=== PATIENT | male | born 1945 | race Caucasian/White ===

== ENCOUNTER → 2017-03-02 | Outpatient (CLI) | payer OTHER ==
[2017-03-02 13:53] LABS: ADD MAN DIFF? NO
[2017-03-02 13:58] LABS: BASO % 1 % (0-3); EOS % 1 % (0-3); HEMATOCRIT 46.2 % (39.0-53.0); HEMOGLOBIN 15.5 g/dL (13.0-17.5); LYMPH # 1.2 x10^3/uL (1.0-4.8); LYMPH % 21 % (24-48); MEAN CORPUSCULAR HEMOGLOBIN 29 pg (25-35); MEAN CORPUSCULAR HGB CONC 34 g/dL (31-37); MEAN CORPUSCULAR VOLUME 86 fL (79-100); MONO % 3 % (0-9); NEUT % 75 % (31-73); PLATELET COUNT 273 x10^3/uL (140-400); RED BLOOD COUNT 5.35 x10^6/uL (4.30-5.70); RED CELL DISTRIBUTION WIDTH 14.6 % (11.5-14.5); WHITE BLOOD COUNT 5.7 x10^3/uL (4.0-11.0)
[2017-03-02 14:16] LABS: ALBUMIN 3.9 g/dL (3.4-5.0); ALBUMIN/GLOBULIN RATIO 1.4 (1.0-1.7); ALK PHOS 87 U/L (46-116); ALT (SGPT) 30 U/L (16-63); ANION GAP 13 (6-14); AST (SGOT) 20 U/L (15-37); BLOOD UREA NITROGEN 28 mg/dL (8-26); BUN/CREATININE RATIO 16 (6-20); CALCIUM 8.7 mg/dL (8.5-10.1); CARBON DIOXIDE 26 mmol/L (21-32); CHLORIDE 102 mmol/L (98-107); CHOLESTEROL 199 mg/dL (0-200); CREATININE 1.8 mg/dL (0.7-1.3); GFR 37.3; GLUCOSE 177 mg/dL (70-99); HDLC 46 mg/dL (40-60); NON-HDL CHOLESTEROL 153 mg/dL (0-129); POTASSIUM 4.5 mmol/L (3.5-5.1); SODIUM 141 mmol/L (136-145); TOTAL BILIRUBIN 0.6 mg/dL (0.2-1.0); TOTAL PROTEIN 6.7 g/dL (6.4-8.2); TRIGLYCERIDES 156 mg/dL (0-150)
[2017-03-02 14:17] LABS: CHOLESTEROL/HDL RATIO 4.3
[2017-03-02 15:01] LABS: PROSTATE SPECIFIC ANTIGEN 3.45 ng/mL (0.00-4.00)
== END | disposition home or self-care (01) ==
LOC: LAB 13:30
DX: Z12.5 Encounter for screening for malignant neoplasm of prostate (principal); I10 Essential (primary) hypertension; R79.89 Other specified abnormal findings of blood chemistry
CPT/HCPCS: 36415; 80053; 80061; 83036; 84443; 85025; G0103

== ENCOUNTER → 2017-03-08 | Outpatient (CLI) | payer OTHER ==
[~2017-03-08] MED LIST: IOHEXOL 300 MG/ML 100ML VIAL. IV
== END | disposition home or self-care (01) ==
LOC: KCIC CT 09:08
DX: R91.1 Solitary pulmonary nodule (principal); E04.1 Nontoxic single thyroid nodule; M47.899 Other spondylosis, site unspecified
CPT/HCPCS: 71250

== ENCOUNTER → 2017-12-06 | Outpatient (CLI) | payer OTHER ==
[2015-06-19 12:50] VITALS: BP 108/47
[~2017-12-06] MED LIST changes: +AMLO10TA6 PO; +ASPI-630 PO; +HYDR50TA6 PO; -IOHEXOL 300 MG/ML 100ML VIAL. IV; +LISI-130 PO; +OMEG1CAP38 PO; +OXYMETAZOLINE 0.05% NASAL SPRAY 30ML BOTTLE. NS ONE; +TADA5TAB PO
--- NOTE | 2017-12-13 09:31 | SLEEP ---
DATE OF STUDY: 12/06/2017 PRIMARY CARE PHYSICIAN: Davon Seth MD. REFERRING PHYSICIAN: Lee Macdonald MD. The patient is 72 years old who weighs 240 pounds with a BMI of 34. The patient's [place] score was 3. The patient underwent a diagnostic study at [facility]. During the night study, the patient spent 430 minutes in bed and slept for 302 minutes with a sleep efficiency of 70%. Sleep latency was 33 minutes with a REM latency of 217 minutes. Overall, sleep architecture showed increased stage 1 sleep, normal stage 2 sleep, normal slow wave and slightly reduced REM sleep, which was 14% of the total sleep time. During the night study, the patient had 3 obstructive apneas, 67 mixed apneas, 8 central apneas and 66 hypopneas. The patient's apnea-hypopnea index was 29 per hour, supine index 30 per hour, and REM index of 50 per hour. EKG monitoring revealed normal sinus rhythm. Average heart rate was 65 beats per minute. No arrhythmias were observed. Nocturnal oximetry study revealed a mean oxygen saturation of 96% with the lowest of 84%. 18% of time oxygen saturation remained between 80% and 89%. PLMS were seen at index of 8 per hour and none caused EEG arousals. CPAP was not initiated as there was not enough time to initiate the CPAP after the patient met the criteria. IMPRESSION: 1. Moderate to severe sleep apnea-hypopnea syndrome. Total apnea-hypopnea index 29 per hour, supine apnea-hypopnea index 30 per hour and a REM apnea-hypopnea index of 50 per hour. 2. Nocturnal hypoxia secondary to obstructive sleep apnea. 3. Mild periodic limb movements during sleep without any significant EEG arousals. This does not need to be treated. RECOMMENDATIONS: 1. The patient should return for a CPAP titration study. 2. Once optimum CPAP pressure is achieved, then follow up in 4-6 weeks to assess compliance with CPAP and to document clinical improvement. 3. Weight loss is strongly advised. 4. Avoid [employer]ICATION [employer] depressants. 5. Caution regarding driving until symptoms of sleep apnea resolve with the use of CPAP. ERIK MOSCOSO MD DR: KADIE/chelo JOB#: [id number] / [id number] LEE Glaser MD
== END | disposition home or self-care (01) ==
LOC: SLPLAB 18:40
PROVIDERS: ATTEND Internal Medicine Pulmonary Disease
DX: G47.33 Obstructive sleep apnea (adult) (pediatric) (principal); G47.34 Idiopathic sleep related nonobstructive alveolar hypoventilation; G47.61 Periodic limb movement disorder
CPT/HCPCS: 95810

== ENCOUNTER → 2018-01-29 | Outpatient (CLI) | payer OTHER ==
[2015-06-19 12:50] VITALS: BP 108/47
[~2018-01-29] MED LIST changes: +IOHEXOL 300 MG/ML 100ML VIAL. IV ONE; -OXYMETAZOLINE 0.05% NASAL SPRAY 30ML BOTTLE. NS ONE
--- NOTE | 2018-01-29 12:46 | KCIC ---
EXAM: Chest CT with intravenous contrast. HISTORY: Pulmonary nodule follow-up. TECHNIQUE: Computed tomographic images of the chest were obtained following the administration of 75 cc Omnipaque 300 intravenous contrast. Multiplanar reformatting was performed. *One or more of the following individualized dose reduction techniques were utilized for this examination: 1. Automated exposure control. 2. Adjustment of the mA and/or kV according to patient size. 3. Use of iterative reconstruction technique. COMPARISON: 03/08/2017. FINDINGS: The heart is normal in size. There is evidence of median sternotomy and coronary artery bypass grafting. The aorta is normal in caliber. There is aortic and [place] coronary artery atherosclerosis. No pathologically enlarged mediastinal or hilar lymph node is seen. There are few calcified mediastinal granulomas, predominantly within the subcarinal distribution. There is no pneumothorax or pleural effusion. There is no infiltrate. There is lingular and bilateral lower lobe atelectasis. There is stable 11 mm pleural-based nodular opacity within the anterior medial right upper lobe likely due to pleural parenchymal scarring. There is a stable 8 mm nodule within the posterior right upper lobe. No new nodule is seen. There is no suspicious osseous lesion. There is hepatic steatosis. There is degenerative change throughout the visualized spine. There is stable sclerosis within the posterior inferior aspect of T12, surrounding a large endplate Schmorl's nodes. IMPRESSION: 1. Stable 8 mm right upper lobe pulmonary nodule. Continued follow-up can be performed according to Fleischner Society criteria to confirm a two-year course of stability. 2. Stable 11 mm pleural-based nodular opacity within the anterior medial right upper lobe, likely due to pleural parenchymal scarring. 3. No acute thoracic finding. Fleischner Society recommendations (Radiology 2005; 237; 395-400): In a low risk patient: <4mm - No follow up required. >4-6mm- 12 month follow up, if unchanged, no further follow up. >6-8mm- 6-12 month follow up, then at 18-24 months if no change. >8mm- 3, 9, 24 month follow up or consideration of PET/CT. In a high risk patient: <4mm - 12 month follow up, if unchanged then no further follow up. >4-6mm- 6-12 month follow up, then at 18-24 months if no change. >6-8mm- 3-6 month follow up, then at 9-12 months and 24 months if no change >8mm- Same as for low risk patient. Electronically signed by: Enid Cruz MD (01/29/2018 12:43 PM) [facility]
== END | disposition home or self-care (01) ==
LOC: KCIC CT 10:20
PROVIDERS: ATTEND Family Medicine
DX: I25.10 Atherosclerotic heart disease of native coronary artery without angina pectoris (principal); J98.11 Atelectasis; K76.0 Fatty (change of) liver, not elsewhere classified; J98.59 Other diseases of mediastinum, not elsewhere classified; R91.8 Other nonspecific abnormal finding of lung field; R91.1 Solitary pulmonary nodule
CPT/HCPCS: 71260; 82565; Q9967

== ENCOUNTER → 2018-03-30 | Outpatient (CLI) | payer OTHER ==
[2015-06-19 12:50] VITALS: BP 108/47
[~2018-03-30] MED LIST changes: -IOHEXOL 300 MG/ML 100ML VIAL. IV ONE
[2018-03-30 12:16] LABS: BASO # 0.1 x10^3/uL (0.0-0.2); BASO % 1 % (0-3); EOS # 0.3 x10^3/uL (0.0-0.7); EOS % 6 % (0-3); HEMATOCRIT 47.9 % (39.0-53.0); LYMPH # 2.1 x10^3/uL (1.0-4.8); LYMPH % 35 % (24-48); MEAN CORPUSCULAR HEMOGLOBIN 29 pg (25-35); MEAN CORPUSCULAR HGB CONC 33 g/dL (31-37); MEAN CORPUSCULAR VOLUME 87 fL (79-100); MONO # 0.5 x10^3/uL (0.0-1.1); MONO % 9 % (0-9); NEUT % 50 % (31-73); PLATELET COUNT 301 x10^3/uL (140-400); RED BLOOD COUNT 5.53 x10^6/uL (4.30-5.70); RED CELL DISTRIBUTION WIDTH 14.6 % (11.5-14.5); WHITE BLOOD COUNT 6.1 x10^3/uL (4.0-11.0)
[2018-03-30 12:57] LABS: ALBUMIN 3.9 g/dL (3.4-5.0); ALBUMIN/GLOBULIN RATIO 1.1 (1.0-1.7); CALCIUM 9.5 mg/dL (8.5-10.1); CREATININE 1.5 mg/dL (0.7-1.3); GFR 45.9; POTASSIUM 4.2 mmol/L (3.5-5.1); TOTAL BILIRUBIN 0.8 mg/dL (0.2-1.0); TOTAL PROTEIN 7.6 g/dL (6.4-8.2)
[2018-03-30 12:58] LABS: CHOLESTEROL/HDL RATIO 4.3
[2018-03-30 19:16] LABS: HEMOGLOBIN A1C 5.6 % (4.8-5.6)
== END | disposition home or self-care (01) ==
LOC: LAB 11:55
PROVIDERS: ATTEND Family Medicine
DX: E78.9 Disorder of lipoprotein metabolism, unspecified (principal)
CPT/HCPCS: 36415; 80053; 80061; 83036; 84443; 85025

== ENCOUNTER → 2018-04-10 | Outpatient (CLI) | payer OTHER ==
[2015-06-19 12:50] VITALS: BP 108/47
[~2018-04-10] MED LIST changes: -AMLO10TA6 PO; +AMLO10TA8 PO; +BUPIVACAINE MPF 0.5% 10 ML VIAL for KCIC. IM ONE; +IOHEXOL 300 MG/ML 50 ML VIAL. INT ART ONE; +LIDOCAINE 1% Multi-Dose 20 ML VIAL. ID ONE; +methylPREDNISolone ACETATE 40 MG/ML VIAL. INT ART ONE
--- NOTE | 2018-04-10 17:00 | KCIC ---
PROCEDURE Therapeutic right hip injection using fluoroscopic guidance. HISTORY Hip pain. TECHNIQUE The procedure was explained to the patient as were potential risks, including infection, bleeding or allergic reaction. All questions were answered. Informed written and verbal consent was obtained. The hip was prepped and draped in the usual sterile manner. Following administration of local anesthetic, a 22-gauge spinal needle was advanced into the hip joint without difficulty, with care taken to avoid the vascular structures. Stylet was removed and following negative aspiration, a mixture of 4 cc Omnipaque-300, 2 cc (80 mg) Depo-Medrol, 4 cc bupivacaine and 4 cc 1% lidocaine were injected without difficulty. Fluoroscopy demonstrates uniform and satisfactory distribution of the injection through the hip. The needle was removed. There was good hemostasis at the injection site. The patient left in stable condition without immediate complication. A single spot image was obtained. FLUOROSCOPY TIME: 31 seconds Electronically signed by: Doug Edwards MD (04/10/2018 4:55 PM) [facility]
== END | disposition home or self-care (01) ==
LOC: KCIC 13:42
PROVIDERS: ATTEND Family Medicine
DX: M25.551 Pain in right hip (principal); G89.29 Other chronic pain; M54.31 Sciatica, right side; J44.9 Chronic obstructive pulmonary disease, unspecified; F52.32 Male orgasmic disorder; N18.3 Chronic kidney disease, stage 3 (moderate); I12.9 Hypertensive chronic kidney disease with stage 1 through stage 4 chronic kidney disease, or unspecified chronic kidney disease; I25.118 Atherosclerotic heart disease of native coronary artery with other forms of angina pectoris; E66.01 Morbid (severe) obesity due to excess calories; E78.9 Disorder of lipoprotein metabolism, unspecified; Z87.891 Personal history of nicotine dependence; Z88.0 Allergy status to penicillin; Z88.2 Allergy status to sulfonamides; Z88.8 Allergy status to other drugs, medicaments and biological substances; Z91.048 Other nonmedicinal substance allergy status; Z79.899 Other long term (current) drug therapy; Z82.49 Family history of ischemic heart disease and other diseases of the circulatory system; Z98.890 Other specified postprocedural states; Z68.36 Body mass index [BMI] 36.0-36.9, adult
CPT/HCPCS: 20610; 77002; J1030; Q9967

== ENCOUNTER → 2018-04-11 | Outpatient (CLI) | payer OTHER ==
[2015-06-19 12:50] VITALS: BP 108/47
[~2018-04-11] MED LIST changes: -BUPIVACAINE MPF 0.5% 10 ML VIAL for KCIC. IM ONE; -IOHEXOL 300 MG/ML 50 ML VIAL. INT ART ONE; -LIDOCAINE 1% Multi-Dose 20 ML VIAL. ID ONE; +PERFLUTREN PROTEIN-A MICROSPHR 0.22 MG/ML 3 ML VIAL. IV ONE; -methylPREDNISolone ACETATE 40 MG/ML VIAL. INT ART ONE
[2018-04-11] MEDS: PERFLUTREN PROTEIN-A MICROSPHR 0.22 MG/ML 3 ML VIAL. IV PRN ×2 (14:01→14:02)
--- NOTE | 2018-04-11 15:02 | CARD ---
MR#: [id number] Date of Study: 04/11/2018 Ordering Physician: NICHO VIZCAINO, Referring Physician: NICHO VIZCAINO Tech: Brenda Stout RDCS APPROVED REPORT EXAM: Two-dimensional and M-mode echocardiogram with Doppler and color Doppler. Other Information Quality : Technically Limited Technically limited study due to body habitus. INDICATION Cardiac Disease: CAD Echo Enhancing Agent Indication: Endocardial border delineation Agent/Amount Used: Optison 2mL 2D DIMENSIONS RVDd2.7 (2.9-3.5cm)Left Atrium(2D)3.8 (1.6-4.0cm) IVSd1.2 (0.7-1.1cm)Aortic Root(2D)3.2 (2.0-3.7cm) LVDd5.1 (3.9-5.9cm)LVOT Diameter2.0 (1.8-2.4cm) PWd1.2 (0.7-1.1cm)LVDs3.1 (2.5-4.0cm) FS (%) 30.0 %SV86.1 ml LVEF(%)60.0 (>50%) Aortic Valve AoV Peak Wilmer.132.5cm/sAoV VTI26.6cm AO Peak GR.7.0mmHgLVOT Peak Wilmer.133.2cm/s AO Mean GR.4mmHgAVA (VMAX)3.09cm2 ROBERTO (VTI)3.10cm2 Mitral Valve MV E Hssgntwa139.8cm/sMV DECEL OPTZ032aj MV A Izgmezbs61.1cm/sE/A Ratio1.0 Tricuspid Valve TR P. Uyecdshr022yg/sRAP OOMBWXPE8pdKp TR Peak Gr.90dgTcKUAT90xjBj Pulmonary Vein S1 Xzbcxrqw27.3cm/sD2 Fxcfjwgw89.7cm/s LEFT VENTRICLE The left ventricle is normal size. There is mild concentric left ventricular hypertrophy. The left ve ntricular systolic function is normal and the ejection fraction is within normal range. The Ejection Fraction is 55-60%. There is normal LV segmental wall motion. Transmitral Doppler flow pattern is Gra de II-pseudonormal filling dynamics. RIGHT VENTRICLE The right ventricle is normal size. The right ventricular systolic function is normal. ATRIA The left atrium size is normal. The right atrium size is normal. The interatrial septum is intact wit h no evidence for an atrial septal defect or patent foramen ovale as noted on 2-D or Doppler imaging. AORTIC VALVE The aortic valve is calcified and appears to open well. Doppler and Color Flow revealed no significan t aortic regurgitation. There is no significant aortic valvular stenosis. MITRAL VALVE The mitral valve is calcified but opens well. There is no evidence of mitral valve prolapse. There is no mitral valve stenosis. Doppler and Color Flow revealed trace mitral valve regurgitation. TRICUSPID VALVE The tricuspid valve is normal in structure and function. Doppler and Color Flow revealed trace tricus pid regurgitation. The PA pressure was estimated at 27 mmHg. There is no tricuspid valve stenosis. PULMONIC VALVE The pulmonic valve is not well visualized. Doppler and Color Flow revealed no pulmonic valvular regur gitation. There is no pulmonic valvular stenosis. GREAT VESSELS The aortic root is normal in size. The ascending aorta is normal in size. The IVC was not visualized. PERICARDIAL EFFUSION There is no evidence of significant pericardial effusion. Critical Notification Critical Value: No <Conclusion> The left ventricle is normal size. The left ventricular systolic function is normal and the ejection fraction is within normal range. The Ejection Fraction is 55-60%. There is mild concentric left ventricular hypertrophy. There is no significant aortic valvular stenosis. Doppler and Color Flow revealed no significant aortic regurgitation. Doppler and Color Flow revealed trace mitral valve regurgitation. Doppler and Color Flow revealed trace tricuspid regurgitation. The PA pressure was estimated at 27 mmHg. Signed by : Ry Butler MD Electronically Approved : 04/11/2018 15:00:13
== END | disposition home or self-care (01) ==
LOC: ECHO 13:12
PROVIDERS: ATTEND Internal Medicine Cardiovascular Disease
DX: I51.7 Cardiomegaly (principal); I25.810 Atherosclerosis of coronary artery bypass graft(s) without angina pectoris
CPT/HCPCS: C8929; Q9956

== ENCOUNTER → 2018-05-03 | Outpatient (CLI) | payer OTHER ==
[2015-06-19 12:50] VITALS: BP 108/47
[~2018-05-03] MED LIST changes: +NAPR-695 PO; -PERFLUTREN PROTEIN-A MICROSPHR 0.22 MG/ML 3 ML VIAL. IV ONE; +SILD20TA2 PO; +TIZA4TAB PO; +UBID30CA9 PO
--- NOTE | 2018-05-03 14:35 | KCIC ---
MRI Lumbar Spine without contrast History: Degenerative disc disease, low back pain, hip pain, pain into both hips, worsening right hip pain Technique: Multiplanar, multi sequential noncontrast MR imaging was performed of the lumbar spine. Comparison: None Findings: Lumbar vertebral body stature is overall maintained other than multilevel Schmorl's nodes. AP alignment is within normal limits. Conus terminates at the inferior aspect L2. There is multilevel advanced degenerative disc disease greatest L5-S1, L4-5, L2-3, to lesser degree at other lumbar levels and also of visualized inferior thoracic levels. There is focus of marrow edema of the inferior T12 vertebral body, hypointense on T1 sequence and hyperintense on STIR and T2 sequence although there may be some associated trabecular thickening, measures about 1.7 cm greatest dimension. T12-L1: There is negligible disc osteophyte complex and bulge. There is mild buckling of the ligamentum flavum. Neural foramina and spinal canal are adequate. L1-L2: There is mild facet degenerative change and buckling of the ligamentum flavum. There is minimal disc osteophyte complex and bulge. Neural foramina and spinal canal are adequate. L2-L3: There is minimal disc osteophyte complex, superimposed shallow protrusion eccentric to left lateral recess. There is mild prominence of posterior epidural fat. There is mild to moderate facet degenerative change and buckling of the ligamentum flavum. There is mild narrowing of the far left lateral recess. There is mild narrowing of the left neural foramen, right neural foramen adequate. L3-L4: There is minimal disc osteophyte complex and bulge. There is mild prominence of posterior epidural fat, buckling of the ligamentum flavum, facet hypertrophic change. Spinal canal is adequate. There is mild neural foramina compromise greater on the left. L4-L5: There is minimal buckling of the ligamentum flavum and facet hypertrophic change. There is mild prominence of posterior epidural fat. There is minimal disc osteophyte complex and shallow protrusion, spinal canal overall adequate. There is grto-ht-uovzlyty left greater than right neural foramina compromise. L5-S1: There is minimal disc osteophyte complex without impingement descending S1 nerve roots. There is prominence of epidural fat in the lateral recesses bilaterally. Small linear focus of signal change of the more posterior central aspect of the thecal sac may be a vessel. There is mild bilateral facet hypertrophic change. There is pbll-kc-yxfxbhim bilateral neural foramina compromise somewhat greater on the right. Impression: 1. There is multilevel advanced degenerative disc disease, L3-4 and L1-2 least affected. There is multilevel mild spondylosis. There is mild narrowing of the far left lateral recess L2-3, no significant lumbar spinal stenosis. There is yhwp-bp-jtynxymr neural foramina compromise bilaterally at L4-5 and L5-S1, minimally more superiorly. 2. There is a focus of nonspecific marrow edema of the inferior T12 vertebral body extending to the inferior endplate. This may be related to sequela of edema associated with Schmorl's node and/or atypical hemangioma, considered more likely than other more aggressive marrow replacing lesion (metastasis) especially if no history or suspicion for malignancy. If clinically needed, bone scan could be performed to assess for abnormal radiotracer activity and to assess for other lesions, alternatively follow-up to assess stability such as in 4 months possibly beneficial. Electronically signed by: Sampson Barron MD (05/03/2018 2:32 PM) [facility]
== END | disposition home or self-care (01) ==
LOC: KCIC MRI 13:25
PROVIDERS: ATTEND Family Medicine
DX: M51.36 Other intervertebral disc degeneration, lumbar region (principal); M47.896 Other spondylosis, lumbar region; M48.061 Spinal stenosis, lumbar region without neurogenic claudication; R60.0 Localized edema
CPT/HCPCS: 72148

== ENCOUNTER → 2018-05-15 | Outpatient (CLI) | payer OTHER ==
[2015-06-19 12:50] VITALS: BP 108/47
[~2018-05-15] MED LIST changes: +IOHEXOL 180 MG/ML 10 ML VIAL. ONE; +methylPREDNISolone ACETATE 40 MG/ML VIAL. ONE; +methylPREDNISolone ACETATE 80 MG/ML VIAL. ONE
--- NOTE | 2018-05-16 01:28 | PAIN ---
DATE OF SERVICE: 05/15/2018 INITIAL CONSULTATION FOR PAIN CLINIC CHIEF COMPLAINT: Low back and right lower extremity pain. HISTORY OF PRESENT ILLNESS: This is a 73-year-old male who presents with history of pain in the low back, right lower extremity for about 3 months. The patient reports it gradually increased, not a result of any specific injury or action he is aware of. It has been getting worse over time with radiation to the right hip, right leg, anterior thigh, medial thigh, medial lower leg and into the posterior gluteus as well as across the low back. The patient did have 2 injections in his right hip joint, which helped the pain by about 20%. The patient reports that still, pain is radiating to the lower extremity, though fairly significantly. The patient reports it is constant, becoming more sharp, stabbing, throbbing, radiating, aching, cramping, becoming more constant and more painful with walking, change in positions, standing from sitting position. The patient reports it is better with lying down. It does not awaken him from sleep at night. It does not affect his bowel or bladder control, but does affect his ability to walk fairly significantly with some significant fatigue in the right lower extremity, but not the left. The patient has had physical therapy in the past, doing some stretching and strengthening exercises on his own and has had some recent hip joint injections with Radiology guidance, but again only moderate decrease in pain. The patient reports he has been taking naproxen, which helps sometimes, but not often and not to a significant extent as well, about 10%. The patient rates his disability rate from 0-10, 10 being the worst, as a 2 with family home responsibilities, social activity, occupation and self-care, 9 with recreation activities, 0 with sexual behavior, 4 with life support activities. The patient did have MRI scan of the lumbar spine showing multilevel advanced degenerative disk disease at L3-L4. L1-L2, least affected with multilevel mild spondylosis with mild narrowing of the far lateral recesses. L2-L3, no significant lumbar spinal stenosis, mild to moderate neural foraminal compromise bilaterally at L4-L5 and L5-S1 minimally more superiorly. PAST MEDICAL HISTORY: Significant for shortness of breath, hypertension, irregular heart rate, sleep apnea, quit smoking in , history of dizziness, arthritis. PREVIOUS SURGERIES: Include coronary artery bypass graft in 2008 and tonsillectomy as a child. CURRENT MEDICATIONS: Include daily baby aspirin, omega fatty acids, Cialis, hydrochlorothiazide, lisinopril, amlodipine, sildenafil, Coenzyme Q10, naproxen and tizanidine. ALLERGIES: THE PATIENT IS ALLERGIC TO SULFA, PENICILLIN, SURGICAL TAPE. FAMILY HISTORY: Significant for no major medical problems or conditions he is aware of. SOCIAL HISTORY: The patient does not drink alcohol, does not smoke, quit many years ago. Does not use any illegal, illicit or recreational drugs. He is , lives with his spouse and lives locally in [place], [place]. Reports he is currently retired. REVIEW OF SYSTEMS: The patient's review of systems is positive for those items mentioned in the history of present illness. All systems reviewed and otherwise negative. It is complete, full and well documented on the patient's chart. PHYSICAL EXAMINATION: VITAL SIGNS: The patient's blood pressure is 174/98, pulse is 99, respirations are 16, temperature is 98.2 degrees Fahrenheit. Height is 5 feet 8 inches, weight is 259 pounds. GENERAL: The patient is awake, alert, oriented, appropriate, very pleasant demeanor. HEENT: Head shows normocephalic, atraumatic. Extraocular muscles are intact and symmetrical. Oral cavity: Mucous membranes moist and pink. The patient is wearing eyeglasses. NECK: Shows anterior throat supple without palpable lymphadenopathy noted. Swallow reflex is symmetrical. CHEST: Shows normal on inspection. Breath sounds clear to auscultation bilaterally. HEART: Shows S1, S2 clear. No murmurs auscultated. ABDOMEN: Obese, soft, nontender, nondistended. No palpable organomegaly is noted. No rebound or guarding demonstrated. BACK: The patient's back shows spine grossly in the midline. Slight exaggeration of thoracic kyphosis, some minor flattening of lumbar lordotic curvature. Lumbar paraspinous muscle shows symmetrical on inspection, on palpation shows some moderate tenderness diffusely throughout the upper, middle and lower distribution of paraspinous muscles, but again diffusely without radiation. The patient has good rotational motion of lumbar spine, both laterally greater than 10 degrees right and left as well as extension greater than 10 degrees, forward flexion 45 degrees without significant pain reported. EXTREMITIES: The patient's lower extremities show deep tendon reflexes 1+ in the patellar and tendo calcaneus tendons are equal. Motor exam is approximately 4 on a scale of 5 on the right, 5/5 on the left with dorsiflexion, extension, quadriceps and hamstring flexion. Peripheral pulses are 1+ posterior tibial. No peripheral edema is noted bilaterally. The patient's straight leg raise is noted to be mildly positive on the right, but not to about 45 degrees leg raise and is decreased with knee flexion. Left side is negative. Gaenslen's and Mario's maneuvers, she has a very mild tenderness with Mario's maneuver on the right, but not on the left. Gaenslen's maneuver negative bilaterally. The patient is able to stand, stand on her toes without difficulty or loss of balance, walks with a normal appearing gait for short distances in the office, not using assistive devices to ambulate. SKIN: Shows warm and dry, good turgor. No edema. No sores, rashes or bruising. IMPRESSION: 1. This is a 73-year-old male with approximately 3-month history of increasing pain in the low back, right lower extremity, status post hip joint injections with only minimal decrease in pain with radicular component of pain in the lower extremity as well and L4-L5 dermatomal distribution. 2. MRI scan of lumbar spine as noted. 3. Hypertension. 4. Arthritis. 5. Coronary artery disease. 6. Obesity. PLAN: Options were discussed with the patient including conservative medical management, physical therapy, interventional techniques. He would like to pursue with interventional techniques. We discussed lumbar epidural steroid injection using descriptions as well as anatomical models to describe the procedure. Risks were then discussed including, but not limited to, bleeding, infection, possibility of epidural hematoma and subsequent neurological compromise, dural puncture, headaches, spinal cord and/or nerve damage, side effects of steroid medication and poor results regarding pain control. The patient understands and wished to proceed. The patient to return to clinic in approximately 2 weeks for followup, was counseled as to return appointment, activity level and side effects to be aware of. DIAGNOSIS: Lumbar radiculopathy with lumbar degenerative disk disease. PROCEDURE: Lumbar epidural steroid injection, translaminar approach L4-L5 level using C-arm fluoroscopic guidance under sterile prep and drape using local anesthetic. MEDICATION INJECTED: A total of 120 mg Depo-Medrol plus 10 mL of preservative-free normal saline and 2 mL of Isovue for contrast. CONDITION AT DISCHARGE: Stable. The patient tolerated the procedure well, had no complications. OLINDA MICHAELS MD DR: LATRELL/chelo JOB#: [id number] / [id number] LAWRENCE Murphy MD
== END | disposition home or self-care (01) ==
LOC: PNCL 11:16
PROVIDERS: ATTEND Anesthesiology
DX: M51.16 Intervertebral disc disorders with radiculopathy, lumbar region (principal); I10 Essential (primary) hypertension; M19.90 Unspecified osteoarthritis, unspecified site; I25.10 Atherosclerotic heart disease of native coronary artery without angina pectoris; E66.9 Obesity, unspecified; Z87.891 Personal history of nicotine dependence; G47.30 Sleep apnea, unspecified; Z95.1 Presence of aortocoronary bypass graft; Z98.890 Other specified postprocedural states; Z79.82 Long term (current) use of aspirin; Z79.899 Other long term (current) drug therapy; Z88.0 Allergy status to penicillin; Z91.048 Other nonmedicinal substance allergy status; Z88.8 Allergy status to other drugs, medicaments and biological substances
CPT/HCPCS: 62323; J1030; J1040; Q9965

== ENCOUNTER → 2018-05-30 | Outpatient (CLI) | payer OTHER ==
[2015-06-19 12:50] VITALS: BP 108/47
--- NOTE | 2018-05-31 00:14 | PAIN ---
DATE OF SERVICE: 05/30/2018 PROGRESS NOTE FOR PAIN CLINIC DIAGNOSES: Lumbar radiculopathy with lumbar degenerative disk disease. HISTORY OF PRESENT ILLNESS: The patient is a 73-year-old male who returns for followup status post lumbar epidural steroid injection x 1. The patient reports pain is about the same as it was after the first injection, still in the low back and in the right lower extremity. The patient reports no significant improvement. The patient reports his pain as 8-9 on a scale of 10 at its worst, 4 on average and 1 at its least and is a 4 today. The patient reports it is aching, sharp, dull, stabbing and constant in the low back, right leg, posterior gluteus, posterior thigh, lateral thigh, anterior thigh, medial thigh and into the groin inferiorly in the upper medial right thigh. The patient reports no new motor or sensory deficits, no new bowel or bladder incontinence, still difficulty with walking, standing, changing positions, especially getting up from a seated position causes significant pain and stabbing sensation as well in the low back and right leg. PHYSICAL EXAMINATION: VITAL SIGNS: The patient's blood pressure 142/71, pulse 72, respirations 16, temperature is 97.9 degrees Fahrenheit, weight is 250 pounds. GENERAL: The patient is awake, alert, oriented, appropriate, very pleasant demeanor. HEENT: Head shows normocephalic, atraumatic. Extraocular movements intact and symmetrical. Oral cavity: Mucous membranes are moist and pink. Dentition is intact. NECK: Shows anterior throat supple without palpable lymphadenopathy noted. Swallow reflex symmetrical. CHEST: Shows normal on inspection. Breath sounds clear to auscultation bilaterally. HEART: Shows S1, S2 clear. No murmurs auscultated. ABDOMEN: Soft, nontender, nondistended. No palpable organomegaly is noted. No rebound or guarding demonstrated. BACK: Shows spine grossly in the midline. Normal appearing thoracic kyphosis and some slight flattening of lumbar lordotic curvature. Lumbar paraspinous muscle shows symmetrical on inspection with palpation shows some moderate tenderness diffusely without radiation. EXTREMITIES: The patient's lower extremities show deep tendon reflexes at 1+ in the patellar and tendo-calcaneus tendons are equal. Motor exam is approximately 4 on a scale of 5 on the right with dorsiflexion and extension, 5/5 on the left. Peripheral pulses are 1+ in posterior tibial. No peripheral edema is noted bilaterally. Options were discussed with the patient. The patient's old chart was reviewed as well as his current medication regimen updated. Current review of systems updated today as well. We will proceed with a second in the series of lumbar epidural steroid injection under fluoroscopic guidance. Risks were again discussed including, but not limited to bleeding, infection, possibility of epidural hematoma and subsequent neurological compromise, dural puncture, headaches, spinal cord and/or nerve damage, side effects of steroid medication and poor results regarding pain control. The patient understands and wished to proceed. The patient is to return to the clinic in approximately 2 weeks for followup, was counseled on return appointment, activity level and side effects to be aware of. DIAGNOSIS: Lumbar radiculopathy with lumbar degenerative disk disease. PROCEDURE: Lumbar epidural steroid injection with translaminar approach at L5-S1 level using C-arm fluoroscopic guidance under sterile prep and drape using local anesthetic. MEDICATION INJECTED: A total of 120 mg of Depo-Medrol plus 10 mL of preservative-free normal saline and 2 mL of Isovue for contrast. CONDITION AT DISCHARGE: Stable. The patient tolerated the procedure well, had no complications. OLINDA MICHAELS MD DR: LATRELL/chelo JOB#: [id number] / [id number]
== END | disposition home or self-care (01) ==
LOC: PNCL 11:04
PROVIDERS: ATTEND Anesthesiology
DX: M51.16 Intervertebral disc disorders with radiculopathy, lumbar region (principal); Z88.0 Allergy status to penicillin; Z88.2 Allergy status to sulfonamides; Z88.8 Allergy status to other drugs, medicaments and biological substances
CPT/HCPCS: 62323; J1030; J1040; Q9965

== ENCOUNTER → 2018-06-13 | Outpatient (CLI) | payer OTHER, MEDICARE ==
[2015-06-19 12:50] VITALS: BP 108/47
--- NOTE | 2018-06-14 03:03 | PAIN ---
DATE OF SERVICE: 06/13/2018 DIAGNOSES: Lumbar radiculopathy with lumbar degenerative disk disease. HISTORY OF PRESENT ILLNESS: The patient is a 73-old-male who presents for followup status post lumbar epidural steroid injection x 2. The patient reports the pain is reduced, but only for about 2-3 days following the injection each time, still some significant pain in the right leg, in the groin and actually into the inferior gluteus on the right side, radiating into the medial upper thigh and into the groin itself on the right side. The patient reports it is aching, sharp, tight, shooting, stabbing, exacerbated with movement of the leg, especially with adduction with the right leg to the midline. The patient reports the pain is 9 on a scale of 10 at its worst, 6 on average, 3 at its least and is 3 today. It is worse with walking, standing, changing positions; better with sitting or lying down; does not awaken him from sleep at night, but with sitting for prolonged periods, greater than about 15-20 minutes the pain is more noticeable and becomes more problematic. The patient reports no new motor or sensory deficits, no new bowel or bladder incontinence. The patient reports the first injection limited the groin pain, but the pain in the right posterior inferior gluteus and into the perineal region is much worse now. PHYSICAL EXAMINATION: VITAL SIGNS: The patient's blood pressure is 130/63, pulse 70, respirations 16, temperature is 97.9 degrees Fahrenheit. Height is 5 feet 8 inches, weight is 242 pounds. GENERAL: The patient is awake, alert, oriented, appropriate, very pleasant demeanor. HEENT: Head is normocephalic, atraumatic. Extraocular movements intact and symmetrical. Oral cavity: Mucous membranes are moist and pink. Dentition is intact. NECK: Shows anterior throat supple without palpable lymphadenopathy noted. Swallow reflex symmetrical. CHEST: Shows normal with inspection. Breath sounds are clear to auscultation bilaterally. HEART: Shows S1, S2 clear. No murmurs auscultated. ABDOMEN: Soft, nontender, nondistended. No palpable organomegaly is noted. No rebound or guarding demonstrated. BACK: Shows spine grossly in the midline. Normal-appearing thoracic kyphosis and lumbar lordotic curvature. Lumbar paraspinous muscle shows symmetrical on inspection, with palpation shows some moderate tenderness diffusely bilaterally, but only diffusely and without radiation. The patient shows good rotational motion of lumbar spine, both laterally greater than 10 degrees right and left with extension greater than 10 degrees, forward flexion 45 degrees without significant pain reported. EXTREMITIES: Lower extremities show deep tendon reflexes 1+ in the patellar and tendo calcaneus tendons are equal. Motor exam is approximately 4 on a scale 5 on the right and 5/5 on the left with dorsiflexion and extension. Peripheral pulses are 1+ posterior tibial. No peripheral edema is noted bilaterally. Options were discussed with the patient. The patient's old chart was reviewed as was his current medication regimen updated. Current review of systems was updated today as well. We will proceed with a caudal approach epidural steroid injection today with fluoroscopic guidance. Risks were again discussed including, but not limited to bleeding, infection, possibility of epidural hematoma and subsequent neurological compromise, dural puncture, headaches, spinal cord and/or nerve damage, side effects of steroid medication and poor results regarding pain control. The patient understands and wished to proceed. The patient will return to clinic in approximately 2 weeks for followup. He was counseled as to return appointment, activity level and side effects to be aware of. DIAGNOSIS: Lumbar radiculopathy with lumbar degenerative disk disease. PROCEDURE: Caudal approach epidural steroid injection using C-arm fluoroscopic guidance under sterile prep and drape using local anesthetic. MEDICATION INJECTED: A total of 120 mg Depo-Medrol plus 10 mL of preservative-free normal saline and 2 mL of Isovue for contrast. CONDITION AT DISCHARGE: Stable. The patient tolerated the procedure well, had no complications. OLINDA MICHAELS MD DR: LATRELL/chelo JOB#: [id number] / [id number]
== END | disposition home or self-care (01) ==
LOC: PNCL 11:12
PROVIDERS: ATTEND Anesthesiology
DX: M51.16 Intervertebral disc disorders with radiculopathy, lumbar region (principal); Z88.0 Allergy status to penicillin; Z88.2 Allergy status to sulfonamides; Z88.8 Allergy status to other drugs, medicaments and biological substances
CPT/HCPCS: 62323; J1030; J1040; Q9965

== ENCOUNTER → 2018-06-22 | Outpatient (CLI) | payer OTHER, MEDICARE ==
[2015-06-19 12:50] VITALS: BP 108/47
[~2018-06-22] MED LIST changes: -IOHEXOL 180 MG/ML 10 ML VIAL. ONE; -methylPREDNISolone ACETATE 40 MG/ML VIAL. ONE; -methylPREDNISolone ACETATE 80 MG/ML VIAL. ONE
--- NOTE | 2018-06-22 12:58 | EKG ---
[facility] [address] [place] [address] Test Date: 2018-06-22 Test Time: 12:54:03 Pat Name: JENNIFER MOE Department: Room: Gender: M [employer] Manager: ROMEL : 1945 Requested By: SANDOR BERNARDO Order Number: [id number] Reading MD: Reece Deng MD Measurements Intervals [place] Rate: 69 P: 44 NH: 194 QRS: 12 QRSD: 90 T: 54 QT: 396 QTc: 425 Interpretive Statements SINUS RHYTHM NON-SPECIFIC ST/T CHANGES Electronically Signed On 06-26-2018 12:01:40 CDT by Reece Deng MD
[2018-06-22 13:27] LABS: ALBUMIN 3.8 g/dL (3.4-5.0); ALBUMIN/GLOBULIN RATIO 1.1 (1.0-1.7); CALCIUM 9.4 mg/dL (8.5-10.1); CREATININE 1.5 mg/dL (0.7-1.3); GFR 45.7; POTASSIUM 4.4 mmol/L (3.5-5.1); TOTAL BILIRUBIN 0.6 mg/dL (0.2-1.0); TOTAL PROTEIN 7.3 g/dL (6.4-8.2)
[2018-06-22 13:35] LABS: BASO % 1 % (0-3); EOS # 0.1 x10^3/uL (0.0-0.7); EOS % 2 % (0-3); HEMOGLOBIN 15.9 g/dL (13.0-17.5); LYMPH # 1.7 x10^3/uL (1.0-4.8); LYMPH % 21 % (24-48); MEAN CORPUSCULAR HEMOGLOBIN 30 pg (25-35); MEAN CORPUSCULAR HGB CONC 34 g/dL (31-37); MEAN CORPUSCULAR VOLUME 88 fL (79-100); MONO # 0.7 x10^3/uL (0.0-1.1); MONO % 8 % (0-9); NEUT # 5.5 x10^3uL (1.8-7.7); NEUT % 68 % (31-73); PLATELET COUNT 287 x10^3/uL (140-400); RED BLOOD COUNT 5.35 x10^6/uL (4.30-5.70); RED CELL DISTRIBUTION WIDTH 14.8 % (11.5-14.5); WHITE BLOOD COUNT 8.1 x10^3/uL (4.0-11.0)
== END | disposition home or self-care (01) ==
LOC: LAB 12:20
PROVIDERS: ATTEND Psychiatry & Neurology Neurology
DX: R00.1 Bradycardia, unspecified (principal); M54.30 Sciatica, unspecified side
CPT/HCPCS: 36415; 80053; 82607; 84153; 85025; 85651; 86431; 93005; G0103

== ENCOUNTER → 2018-06-27 | Outpatient (CLI) | payer OTHER, MEDICARE ==
[2015-06-19 12:50] VITALS: BP 108/47
[~2018-06-27] MED LIST changes: +GADOBUTROL 10 MMOL/10 ML VIAL IV ONE
--- NOTE | 2018-06-27 13:16 | KCIC ---
MR of the musculoskeletal pelvis-sacrum with and without contrast HISTORY: Piriformis syndrome. TECHNIQUE: Routine pre and postcontrast images are obtained. FINDINGS: The piriformis muscles are symmetric. No abnormal edema or signal about either piriformis muscle. The visualized sciatic nerves appear symmetric. The sacroiliac joints are intact. Sacrum appears intact without abnormal marrow edema or bone destruction. The sacral foramen are patent. Other skeletal structures within the [id number] demonstrates no acute abnormality. Note is made of severe degenerative changes at the right hip. There is subchondral bone irregularity or collapse of the right femoral head, likely degenerative, with marrow edema at the femoral head. Superimposed right femoral head osteonecrosis is possible if there are risk factors. Small right hip joint effusion. Milder degenerative changes at the left hip. The visualized major tendon attachments demonstrate no evidence of acute rupture. No abnormal soft tissue fluid collection. Limited visualization of the spine demonstrates severe degenerative spondylosis. IMPRESSION: 1. Piriformis muscles appear symmetric. 2. Sacrum and sacroiliac joints are intact. 3. Severe degenerative changes at the right hip are noted. Mild superior femoral head collapse with substantial marrow edema at least raises the question of osteonecrosis. 3. Small right hip joint effusion, nonspecific. Electronically signed by: Doug Edwards MD (06/27/2018 1:14 PM) [facility]
== END | disposition home or self-care (01) ==
LOC: KCIC MRI 10:48
PROVIDERS: ATTEND Psychiatry & Neurology Neurology
DX: M16.11 Unilateral primary osteoarthritis, right hip (principal); M25.451 Effusion, right hip; M47.819 Spondylosis without myelopathy or radiculopathy, site unspecified; G57.01 Lesion of sciatic nerve, right lower limb
CPT/HCPCS: 72197; 82565; A9585

== ENCOUNTER → 2018-08-20 | Outpatient (CLI) | payer OTHER, MEDICARE ==
[2015-06-19 12:50] VITALS: BP 108/47
[~2018-08-20] MED LIST changes: -GADOBUTROL 10 MMOL/10 ML VIAL IV ONE
--- NOTE | 2018-08-20 15:08 | KCIC ---
CT CHEST WO CONTRAST Indication: Lung nodule, follow-up Exposure: One or more of the following individualized dose reduction techniques were utilized for this examination: 1. Automated exposure control 2. Adjustment of the mA and/or kV according to patient size 3. Use of iterative reconstruction technique. Technique: Standard imaging without intravenous contrast. Comparison: January 29, 2018 The thyroid morphology and appearance is stable. No significant lymph node enlargement is seen. No pericardial effusion. There are coronary artery calcifications. No significant pleural effusion. The thoracic aorta is calcified ascending aorta measures about 3.4 cm transverse. Right upper lobe nodule, image 71 measures 8 mm, stable. Nodular region in the anteromedial right upper lobe, likely scarring, is stable. No evidence of consolidating infiltrate. Trachea and central main stem bronchi are patent. Degenerative changes of the spine are stable. No evidence of aggressive bone destruction. Scans to the upper abdomen are limited by technique but no evidence of acute abnormality. IMPRESSION: 1. Stable pulmonary lesions. 2. No acute findings. Electronically signed by: Doug Edwards MD (08/20/2018 3:05 PM) [facility]
== END | disposition home or self-care (01) ==
LOC: KCIC CT 13:14
PROVIDERS: ATTEND Internal Medicine Pulmonary Disease
DX: J98.4 Other disorders of lung (principal); R91.1 Solitary pulmonary nodule; I70.0 Atherosclerosis of aorta; I10 Essential (primary) hypertension
CPT/HCPCS: 71250

== ENCOUNTER → 2018-09-11 | Outpatient (CLI) | payer OTHER ==
[2015-06-19 12:50] VITALS: BP 108/47
--- NOTE | 2018-09-11 15:11 | RAD ---
Examination: SHOULDER 2+V RIGHT History: Acute right shoulder pain Comparison/Correlation: None Findings: Total 3 images of the right shoulder were obtained. Acromioclavicular joint degenerative hypertrophy and spurring noted. Narrowing of the acromioclavicular joint noted. Glenohumeral joint relationship is unremarkable. Right upper lung field level surgical clips are present. Sternal wires are noted. Impression: No acute process. Electronically signed by: Italo Shearer MD (09/11/2018 3:08 PM) [facility]
== END | disposition home or self-care (01) ==
LOC: RAD 11:49
PROVIDERS: ATTEND Psychiatry & Neurology Neurology
DX: M89.311 Hypertrophy of bone, right shoulder (principal); M75.91 Shoulder lesion, unspecified, right shoulder
CPT/HCPCS: 73030

== ENCOUNTER → 2018-10-02 | Outpatient (CLI) | payer MEDICARE, OTHER ==
[2015-06-19 12:50] VITALS: BP 108/47
[~2018-10-02] MED LIST changes: -TIZA4TAB PO; +TIZA4TAB2 PO
--- NOTE | 2018-10-03 12:52 | SLEEP ---
DATE OF STUDY: 10/02/2018 SLEEP STUDY ATTENDING PHYSICIAN: Lawrence Seth MD REFERRING PHYSICIAN: Kavita Mcgee MD The patient is a 73-year-old, weighs 235 pounds with a BMI of 34. The patient's Bethesda score was 6. The patient had a previous sleep study and showed euxogces-yo-[id number] sleep apnea at an AHI of 29 per hour with a supine AHI of 30 per hour, and REM AHI of 50 per hour. The patient was referred back for CPAP titration study. During the night study, the patient spent 403 minutes in bed and slept for 299 minutes with a sleep efficiency of 74%. Sleep latency was 47 minutes with a REM latency of 181 minutes. Overall, sleep architecture showed increased stage 1 and stage 2 sleep, absent slow wave and reduced REM sleep. EKG monitoring revealed normal sinus rhythm, average heart rate was 67 beats per minute, no sustained arrhythmias observed. No PLMS seen. The patient was started on CPAP at a pressure of 5 cm water and titrated up to 15 cm water. At the final pressure, the patient slept for 74 minutes. The patient had supine as well as REM sleep. The patient's AHI was reduced to 2 per hour and oxygen saturation remained above 91%. The patient used medium size full face mask. IMPRESSION: 1. [id number]-cm-ujlhfb sleep apnea-hypopnea syndrome diagnosed by previous sleep study. 2. No clinically significant PLMS. RECOMMENDATIONS: 1. CPAP at 15 cm water completely eliminated the patient's sleep apnea and should be used on a nightly basis. 2. Follow up in 4-6 weeks to assess compliance with CPAP and to document clinical improvement. 3. Weight loss is strongly advised. 4. Avoid [employer] depressants. 5. Cautioned regarding driving until symptoms of sleep apnea resolve with the use of CPAP. ERIK MOSCOSO MD DR: KADIE/chelo JOB#: [id number] / [id number] LAWRENCE Murphy MD, SABATO MD
== END | disposition home or self-care (01) ==
LOC: RT 20:34
PROVIDERS: ATTEND Internal Medicine Pulmonary Disease
DX: G47.33 Obstructive sleep apnea (adult) (pediatric) (principal)
CPT/HCPCS: 95811

== ENCOUNTER → 2018-11-19 | Outpatient (CLI) | payer OTHER ==
[2015-06-19 12:50] VITALS: BP 108/47
[~2018-11-19] MED LIST changes: +GABA300C18 PO; +IOHEXOL 180 MG/ML 10 ML VIAL. ONE; +methylPREDNISolone ACETATE 40 MG/ML VIAL. ONE; +methylPREDNISolone ACETATE 80 MG/ML VIAL. ONE
--- NOTE | 2018-11-19 22:53 | PAIN ---
DATE OF SERVICE: 11/19/2018 PROGRESS NOTE FOR PAIN CLINIC DIAGNOSES: Lumbar radiculopathy with lumbar degenerative disk disease. HISTORY OF PRESENT ILLNESS: The patient is a 73-year-old male who returns for followup status post epidural steroid injections x 3, most recently seen 06/13/2018. The patient did very well for a caudal approach epidural steroid injection. The patient after the third day had no pain and it was extended for several months. The patient reports the pain is returning now well with about the past 3-4 weeks in the low back and into the right lower extremity, most significantly with riding his motorcycle. The patient reports he is taking some gabapentin now with mild improvement. Rates the pain is a 10 on scale of 10 at its worst over the past week, 5 on average and a 4 at its least and is a 5 today. The patient reports no new motor or sensory deficits, no new bowel or bladder incontinence. The patient reports the pain is not debilitating. He still has significant pain, but does not awaken him from sleep at night, worse with walking, standing, again riding on his motorcycle on the right leg significantly. PHYSICAL EXAMINATION: VITAL SIGNS: The patient's blood pressure is 140/66, pulse 67, respirations 16, temperature 98.1 degrees Fahrenheit, height is 5 feet 8 inches and weight is 243 pounds. GENERAL: The patient is awake, alert, oriented, appropriate, very pleasant demeanor. HEENT: Head is normocephalic, atraumatic. Extraocular movements are intact and symmetrical. Oral cavity: Mucous membranes moist and pink. Dentition is intact. NECK: Shows anterior throat supple without palpable lymphadenopathy noted. Swallow reflex symmetrical. CHEST: Shows normal on inspection. Breath sounds clear to auscultation bilaterally. HEART: Shows S1, S2 clear. No murmurs auscultated. ABDOMEN: Soft, nontender, nondistended. BACK: Shows spine grossly in the midline. Lumbar paraspinous muscle shows symmetrical on inspection, on palpation shows some moderate tenderness diffusely, but only diffusely bilaterally without radiation. EXTREMITIES: The patient's lower extremities show deep tendon reflexes at 1+ in the patellar and tendo calcaneus tendons. Motor exam is approximately 4 on a scale of 5 on the right, 5/5 on the left dorsiflexion, extension, quadriceps and hamstring flexion. Peripheral pulses are 1+ posterior tibia. No peripheral edema is noted bilaterally. Options were discussed with the patient. The patient's old chart was reviewed as his current medication regimen updated. Current review of systems updated today as well. We will proceed with a caudal approach epidural steroid injection, the first in this series with fluoroscopic guidance. Risks were again discussed including, but not limited to bleeding, infection, possibility of epidural hematoma, subsequent neurological compromise, dural puncture, headaches, spinal cord and/or nerve damage, side effects of steroid medication and poor results regarding pain control. The patient understands and wished to proceed. The patient will return to clinic in approximately 2 weeks for followup. She was counselled on return appointment, activity level and side effects to be aware of. DIAGNOSIS: Lumbar radiculopathy with lumbar degenerative disk disease. PROCEDURE: Lumbar epidural steroid injection, caudal approach using C-arm fluoroscopic guidance under sterile prep and drape using local anesthetic. MEDICATION INJECTED: The patient received a total of 120 mg Depo-Medrol plus 10 mL of preservative-free normal saline and 2 mL of contrast. CONDITION AT DISCHARGE: Stable. The patient tolerated procedure well, had no complications. OLINDA MICHAELS MD DR: LATRELL/chelo JOB#: [id number] / [id number]
== END ==
LOC: PNCL 11:04
PROVIDERS: ATTEND Anesthesiology
DX: M51.16 Intervertebral disc disorders with radiculopathy, lumbar region (principal)
CPT/HCPCS: 62323; J1030; J1040; Q9965

== ENCOUNTER → 2018-11-20 | Outpatient (CLI) | payer OTHER ==
[2015-06-19 12:50] VITALS: BP 108/47
[~2018-11-20] MED LIST changes: -IOHEXOL 180 MG/ML 10 ML VIAL. ONE; -methylPREDNISolone ACETATE 40 MG/ML VIAL. ONE; -methylPREDNISolone ACETATE 80 MG/ML VIAL. ONE
--- NOTE | 2018-11-20 16:57 | KCIC ---
Bilateral lower extremity venous doppler ultrasound History: Swelling of the lower extremities bilaterally Comparison: None Findings: Multiple grayscale, color, and duplex spectral analysis sonographic images were acquired of the bilateral lower extremity veins to evaluate for the presence of DVT. There is normal phasicity. Normal compression, color-flow, and augmentation is demonstrated from the bilateral common femoral to the popliteal veins. There is normal color flow of the proximal profunda femoris veins. There is normal color flow of segments of the calf veins. There is some edema of the soft tissues. Impression: 1. There is no evidence of deep venous thrombosis from the bilateral common femoral to the popliteal veins. Electronically signed by: Sampson Barron MD (11/20/2018 4:54 PM) [facility] [place]
== END | disposition home or self-care (01) ==
LOC: KCIC US 12:05
PROVIDERS: ATTEND Psychiatry & Neurology Neurology
DX: M79.89 Other specified soft tissue disorders (principal)
CPT/HCPCS: 93970

== ENCOUNTER → 2018-12-04 | Outpatient (CLI) | payer OTHER ==
[2015-06-19 12:50] VITALS: BP 108/47
[~2018-12-04] MED LIST changes: +IOHEXOL 180 MG/ML 10 ML VIAL. ONE; +methylPREDNISolone ACETATE 40 MG/ML VIAL. ONE; +methylPREDNISolone ACETATE 80 MG/ML VIAL. ONE
--- NOTE | 2018-12-05 00:47 | PAIN ---
DATE OF SERVICE: 12/04/2018 This is progress note for pain clinic. DIAGNOSIS: Lumbar radiculopathy with lumbar degenerative disk disease HISTORY OF PRESENT ILLNESS: The patient is a 73-year-old male who returns for followup status post caudal epidural steroid injection x 1 with about 50% improvement. The patient reports he is doing well enough that he would like to wait on any further injections. He has increased his activity, he is walking greater distances, doing household activities, work activities, walking his dogs with greater ease and comfort. The patient reports he has been traveling with greater ease and is very pleased with his progress. The patient reports his pain is a 5 on a scale of 10 at its worst in the past week, 3 on average, 2 at its least, and is 2 today. The patient reports it is dull and constant in the back and sometimes in the right hip, but much better than it was, actually more noticeable with sitting, but does not awaken him from sleep at night. The patient reports that he is walking up and around, he feels actually better. The patient reports no new motor or sensory deficits, no bowel or bladder incontinence or other complaints. PHYSICAL EXAMINATION: VITAL SIGNS: The patient's blood pressure 125/67, pulse 67, respirations 18, temperature 98.2 degrees Fahrenheit, height is 5 feet 8 inches and weight is 239 pounds. GENERAL: The patient is awake, alert, oriented, appropriate, very pleasant demeanor. HEENT: Shows normocephalic, atraumatic. Extraocular movements are intact and symmetrical. Oral cavity: Mucous membranes moist and pink. Dentition is intact. NECK: Shows anterior throat supple without palpable lymphadenopathy noted. Swallow reflex symmetrical. CHEST: Shows normal on inspection. Breath sounds are clear to auscultation bilaterally. HEART: Shows S1, S2 clear. No murmurs auscultated. ABDOMEN: Soft, nontender, nondistended. No palpable organomegaly is noted. No rebound or guarding demonstrated. BACK: Shows spine grossly in the midline. Normal appearing thoracic kyphosis and minor flattening of lumbar lordotic curvature. Lumbar paraspinous muscle shows symmetrical on inspection, with palpation shows some moderate tenderness diffusely bilaterally, but only diffusely without radiation. EXTREMITIES: The patient's lower extremities show deep tendon reflexes 1+ in the patellar and tendo calcaneus tendons are equal. Motor exam is approximately 4 on a scale of 5 on the right with dorsiflexion and extension, 5/5 on the left. Peripheral pulses are 1+ posterior tibia. No peripheral edema is noted. Options were discussed with the patient. The patient's old chart was reviewed. His current medication regimen updated. Current review of systems updated today as well. We will hold any further injections at this time as the patient is doing quite a bit better and would like to wait. Encouraged him to increase activity as tolerated, maintain walking, stretching and strengthening exercises. The patient will follow up at this time on an as-needed basis. OLINDA MICHAELS MD DR: LATRELL/chelo JOB#: [id number] / [id number]
== END | disposition home or self-care (01) ==
LOC: PNCL 11:14
PROVIDERS: ATTEND Anesthesiology
DX: M51.16 Intervertebral disc disorders with radiculopathy, lumbar region (principal)
CPT/HCPCS: G0463; J1030; J1040; Q9965

== ENCOUNTER → 2018-12-20 | Outpatient (CLI) | payer OTHER ==
[2015-06-19 12:50] VITALS: BP 108/47
[~2018-12-20] MED LIST changes: +BUPIVACAINE MPF 0.5% 10 ML VIAL for KCIC. IM ONE; -IOHEXOL 180 MG/ML 10 ML VIAL. ONE; +IOHEXOL 300 MG/ML 50 ML VIAL. INT ART ONE; +LIDOCAINE 1% Multi-Dose 20 ML VIAL. ID ONE; +methylPREDNISolone ACETATE 40 MG/ML VIAL. INT ART ONE; -methylPREDNISolone ACETATE 40 MG/ML VIAL. ONE; -methylPREDNISolone ACETATE 80 MG/ML VIAL. ONE
--- NOTE | 2018-12-20 11:51 | KCIC ---
PROCEDURE: Right hip steroid injection under fluoroscopic guidance INDICATION: Right hip pain. Primary osteoarthrosis. CONTRAST: Approximately 4 cc Omnipaque 300 FINDINGS: The risks, benefits and alternatives to the procedure were discussed with the patient. A timeout was performed to confirm the patient's identity and laterality of the injection. Utilizing sterile technique, fluoroscopic guidance and local anesthesia with 1% lidocaine, the right hip joint was accessed utilizing a 3.5" 22-gauge spinal needle. A small amount contrast was used to confirm the intra-articular location of the needle tip. Subsequently, a mixture containing 4 cc bupivacaine and 80 mg Depo-Medrol was injected. There were no immediate complications. Fluoroscopy time: 18 seconds Number of images obtained: 1 Impression: Technically successful right hip steroid injection under fluoroscopic guidance. Electronically signed by: ABBY BAIRD MD (12/20/2018 11:48 AM) [email or web address]
== END ==
LOC: KCIC 10:19
PROVIDERS: ATTEND Orthopaedic Surgery Sports Medicine
DX: M16.11 Unilateral primary osteoarthritis, right hip (principal)
CPT/HCPCS: 20610; 77002; J1030; Q9967

== ENCOUNTER → 2019-02-06 | Outpatient (CLI) | payer OTHER ==
[2015-06-19 12:50] VITALS: BP 108/47
[~2019-02-06] MED LIST changes: -BUPIVACAINE MPF 0.5% 10 ML VIAL for KCIC. IM ONE; -IOHEXOL 300 MG/ML 50 ML VIAL. INT ART ONE; -LIDOCAINE 1% Multi-Dose 20 ML VIAL. ID ONE; -methylPREDNISolone ACETATE 40 MG/ML VIAL. INT ART ONE
--- NOTE | 2019-02-11 11:07 | PATHOLOGY ---
[facility] Accession Number: [id number] . 01 Material submitted: . chest - LEFT CHEST WALL. Modifiers: left, wall . 01 Clinician provided ICD-10: D22.9 . 01 Clinical history: . Suspicious nevus . 02 Diagnosis: Skin, "L chest wall", shave biopsy: - Seborrheic keratosis. (CLW:joyce; 02/08/2019) MBR 02/11/2019 1049 Local . 02 Electronically signed: . Kirsten Cleveland MD, Pathologist NPI- [id number] . 01 Gross description: . Received in formalin labeled "Mark Fermin, left chest wall," is a shave biopsy measuring 0.7 x 0.4 x 0.1 cm in maximum dimension. The epidermal surface displays a lesion that is poorly circumscribed, slightly raised, dark brown, and measures approximately 0.3 x 0.2 cm. The margin is inked and the specimen is bisected and entirely submitted in cassette A1. Additionally received in the same container is a shave biopsy measuring 0.6 x 0.4 x 0.1 cm. The epidermal surface displays a lesion that is poorly circumscribed, slightly raised, dark brown, and measures approximately 0.3 x 0.3 cm. The margin is inked and the specimen is bisected and entirely submitted in cassette A2. (TSD; 02/07/2019) TOB/TOB 02/07/2019 2246 Local . 02 Pathologist provided ICD-10: L82.1 . 02 CPT . 052389 Specimen Comment: A courtesy copy of this report has been sent to [phone] Specimen Comment: [id number] Specimen Comment: Report sent to / DR CHAVIRA Performed at: 01 [facility] [address] [id number] MD Mina Alvarado MD Phone: [phone] Performed at: 02 [facility] [address] [id number] MD Perez Reese MD Phone: [phone]
== END | disposition home or self-care (01) ==
LOC: SPEC 15:13
PROVIDERS: ATTEND Nurse Practitioner Family
DX: D22.9 Melanocytic nevi, unspecified (principal)
CPT/HCPCS: 88305

== ENCOUNTER → 2019-02-28 | Outpatient (CLI) | payer OTHER ==
[2015-06-19 12:50] VITALS: BP 108/47
== END | disposition home or self-care (01) ==
LOC: LAB 14:23
PROVIDERS: ATTEND Psychiatry & Neurology Neurology
DX: M25.579 Pain in unspecified ankle and joints of unspecified foot (principal)
CPT/HCPCS: 36415; 84550; 85651

== ENCOUNTER → 2019-04-01 | Outpatient (CLI) | payer OTHER ==
[2015-06-19 12:50] VITALS: BP 108/47
[~2019-04-01] MED LIST changes: +MOME13HF2 IH; +MULT-121 PO; +VENTOLIN HFA18 GM INH
[2019-04-01 09:08] LABS: ALBUMIN 3.6 g/dL (3.4-5.0); BASO # 0.1 x10^3/uL (0.0-0.2); BASO % 1 % (0-3); CALCIUM 9.1 mg/dL (8.5-10.1); CREATININE 1.6 mg/dL (0.7-1.3); EOS # 0.3 x10^3/uL (0.0-0.7); EOS % 5 % (0-3); GFR 42.5; HEMATOCRIT 43.6 % (39.0-53.0); HEMOGLOBIN 14.8 g/dL (13.0-17.5); LYMPH # 1.7 x10^3/uL (1.0-4.8); LYMPH % 32 % (24-48); MEAN CORPUSCULAR HEMOGLOBIN 29 pg (25-35); MEAN CORPUSCULAR HGB CONC 34 g/dL (31-37); MEAN CORPUSCULAR VOLUME 87 fL (79-100); MONO # 0.4 x10^3/uL (0.0-1.1); MONO % 8 % (0-9); NEUT % 55 % (31-73); PLATELET COUNT 306 x10^3/uL (140-400); RED BLOOD COUNT 5.04 x10^6/uL (4.30-5.70); RED CELL DISTRIBUTION WIDTH 14.2 % (11.5-14.5); WHITE BLOOD COUNT 5.4 x10^3/uL (4.0-11.0)
[2019-04-01 09:14] LABS: PROTHROMBIN TIME PATIENT 13.2 SEC (11.7-14.0)
--- NOTE | 2019-04-01 14:43 | RAD ---
EXAM: CHEST 2 VIEWS. HISTORY: Hypertension, pulmonary nodules. COMPARISON: 08/20/2018. FINDINGS: Frontal and lateral views of the chest are obtained. There are changes of coronary artery bypass grafting. There is mild atelectasis in the left base. The hemidiaphragms are mildly flattened. There are no confluent infiltrates. There is no pneumothorax or pleural effusion. The heart is not enlarged. IMPRESSION: 1. Correlate for mild chronic obstructive pulmonary disease. No confluent infiltrates. Electronically signed by: Zach Cruz MD (04/01/2019 2:40 PM) [facility]
== END | disposition home or self-care (01) ==
LOC: SURGPAT 13:17
PROVIDERS: ATTEND Orthopaedic Surgery Sports Medicine
DX: Z01.818 Encounter for other preprocedural examination (principal); M16.11 Unilateral primary osteoarthritis, right hip; Z88.0 Allergy status to penicillin; Z88.2 Allergy status to sulfonamides; Z88.8 Allergy status to other drugs, medicaments and biological substances
CPT/HCPCS: 36415; 71046; 80048; 82040; 82306; 85025; 85610; 85651; 85730; 87641

== ENCOUNTER 2019-04-15 06:13 | Inpatient (IN) | payer OTHER, MEDICARE ==
[~2019-04-15] VITALS: Ht 177.8 cm; Wt 109.8 kg
[2019-04-15] VITALS (8 sets, daily range): BP systolic 95–138; BP diastolic 48–71
[~2019-04-15 06:13] MED LIST changes: +ACETAMINOPHEN 500 MG TABLET PO PRN; +TRANEXAMIC ACID 1,000 MG in IV NS 50ML -- 1ST BAG INJ ONE
[2019-04-15] MEDS ORDERED: fentaNYL PF VIAL 100 MCG/2 ML VIAL IV PRN ×2 (07:00→07:15)
[2019-04-15] MEDS ORDERED: PROCHLORPERAZINE 10 MG/2 ML VIAL. IV PRN (07:00)
[2019-04-15] MEDS ORDERED: LIDOCAINE 1% PF 2 ML VIAL. ID PRN (07:00)
[2019-04-15] MEDS ORDERED: HYDROmorphone 2 MG/ML VIAL IV PRN (07:00)
[2019-04-15] MEDS ORDERED: ONDANSETRON PF 4 MG/2 ML VIAL. IV PRN (07:00)
[2019-04-15] MEDS ORDERED: IV NORMAL SALINE 1000ML BAG 1,000 ML IV SCH (07:04)
[2019-04-15] MEDS ORDERED: ROCURONIUM 50 MG/5 ML VIAL. ONE (07:14)
[2019-04-15] MEDS ORDERED: DEXAMETHASONE SOD PHOS 4 MG/ML VIAL ONE (07:14)
[2019-04-15] MEDS ORDERED: LIDOCAINE 2% PF 5 ML VIAL. ONE (07:14)
[2019-04-15] MEDS ORDERED: PROPOFOL 20 ML IV ONE (07:14)
[2019-04-15] MEDS ORDERED: ZOLPIDEM 5 MG TABLET. PO PRN (07:15)
[2019-04-15] MEDS ORDERED: SILDENAFIL CITRATE 20 MG TABLET. PO PRN (07:15)
[2019-04-15] MEDS ORDERED: CALCIUM CARBONATE 500 MG TAB.CHEW PO PRN (07:15)
[2019-04-15] MEDS ORDERED: DEXTROSE 50% 25 GM / 50ML DISP.SYRIN. IV PRN (07:15)
[2019-04-15] MEDS ORDERED: 0.9 % SODIUM CHLORIDE 10 ML DISP.SYRIN. IV PRN (07:15)
[2019-04-15] MEDS ORDERED: NON FORMULARY ITEM (Albuterol Sulfate (Ventolin Hfa Inhaler) 2 PUFF) INH PRN (07:15)
[2019-04-15] MEDS ORDERED: METOCLOPRAMIDE HCL 10 MG/2 ML VIAL. IV PRN (07:15)
[2019-04-15] MEDS ORDERED: IV DEXTROSE 5% 250 ML BAG. IV PRN (07:15)
[2019-04-15] MEDS ORDERED: diphenhydrAMINE 50 MG/ML VIAL IV PRN (07:15)
[2019-04-15] MEDS ORDERED: PROCHLORPERAZINE 5 MG TABLET. PO PRN (07:15)
[2019-04-15] MEDS: IV RINGERS,LACTATED 1000ML 1,000 ML IV SCH ×2 (07:34→10:19)
[2019-04-15] MEDS ORDERED: MELO15TA23 PO (07:37)
[2019-04-15] MEDS ORDERED: WARF-78 PO (07:38)
[2019-04-15] MEDS: CLINDAMYCIN 900MG PREMIX 50 ML IV PRN ×2 (07:40→12:27)
[2019-04-15] MEDS ORDERED: ACETAMINOPHEN 500 MG TABLET PO ONE (07:45)
[2019-04-15] MEDS ORDERED: TRANEXAMIC ACID 1,000 MG in IV NS 50ML -- 2ND BAG INJ ONE (08:00)
[2019-04-15] MEDS: ALBUTEROL SULFATE 2.5 MG/3 ML NEBU. NEB SCH ×4 (08:00→23:27)
[2019-04-15] MEDS ORDERED: ALBUTEROL SULFATE 2.5 MG/3 ML NEBU. NEB PRN (08:00)
[2019-04-15] MEDS: BUDESONIDE 0.5 MG/2 ML NEBU. NEB SCH ×2 (08:00→19:37)
[2019-04-15] MEDS: MORPHINE SULFATE 5 MG, KETOROLAC 30MG VIAL 30 MG, ROPIVacaine 0.5% PF 60 ML, EPINEPHrin... INT ART ONE ×5 (08:24)
[2019-04-15] MEDS ORDERED: DESFLURANE 61 TO 120 MINUTES IH ONE (08:26)
[2019-04-15 08:30] LABS: PROTHROMBIN TIME PATIENT 12.7 SEC (11.7-14.0)
[2019-04-15] MEDS ORDERED: PHENYLEPHRINE in 0.9% NACL PF 1 MG/10 ML SYRINGE. IV ONE (08:59)
[2019-04-15] MEDS: amLODIPine BESYLATE 10 MG TABLET PO SCH (09:00)
[2019-04-15] MEDS: SENNOSIDES/DOCUSATE 8.6/50MG TABLET. PO SCH (09:00)
[2019-04-15] MEDS: LISINOPRIL 20 MG TABLET PO SCH (09:00)
[2019-04-15] MEDS ORDERED: NEOSTIGMINE METHYLSULFATE 5 MG/5 ML SYRINGE. ONE (09:00)
[2019-04-15] MEDS: MULTIVITAMIN with MINERAL TABLET. PO SCH (09:00)
[2019-04-15] MEDS ORDERED: GLYCOPYRROLATE 1 MG/5 ML VIAL. ONE (09:00)
[2019-04-15] MEDS: hydroCHLOROthiazide 12.5 MG CAPSULE PO SCH (09:00)
[2019-04-15] MEDS ORDERED: NON FORMULARY ITEM (Mometasone/Formoterol (Dulera 100 Mcg/5 Mcg Inhaler) 2 PUFF) IH SCH (09:00)
[2019-04-15] MEDS: GABAPENTIN 300 MG CAPSULE. PO SCH ×2 (09:00→21:07)
--- NOTE | 2019-04-15 09:45 | PDOC4 ---
Operative Note Operative Note Date of procedure: 04/15/19 Surgeon: Chad Manrique Asst.: Leo Mejia, advanced practice registered nurse who was necessary to assist with manipulating the leg and holding retractors as well as wound closure for this procedure Preoperative diagnosis: Advanced right hip primary degenerative joint disease Postoperative diagnosis: Same Procedure performed: Right total hip arthroplasty Anesthesia: Gen. Findings: Advanced primary degenerative joint disease of right hip. Blood loss: 300 mL Complications: None Components inserted Huitron and nephew 56 mm outer diameter R33 hole shell with a 20 posteriorly directed polyethylene liner, size 6 standard offset anthology femoral component with a 36+4 cobalt chrome head. Reason for procedure: Patient is a very pleasant individual with severe progressive pain interfering with his activities of daily living and attributable to the above preoperative diagnosis. Clinical and radiographic examination were consistent with the above preoperative diagnosis and after discussion of the risks, benefits, and alternatives, taking into account his failure of conservative therapies, the patient elected to proceed with surgery. Description of procedure: Patient was greeted in the preoperative area by myself for the correct extremity was verified and marked. He was taken back to the operative suite and antibiotics were started as they were brought back. Once in the operative room, patient was transferred gently supine to the operating table and secured to the bed with all pressure points padded. Axillary roll was used. The down leg was padded at the fibular head and heel. Patient was secured the bed with our hip positioning devices. I then appreciated leg lengths in this position. After this, the operative extremity was prepped and draped in our usual sterile fashion including an Ioban Wheeler. We then proceeded to conduct our standard preoperative timeout. I then palpated and marked surface anatomy and cady a line for my standard posterolateral skin incision. Skin was incised with a scalpel and subcutaneous tissue was dissected down the level of fascia with electrocautery. Bleeders were cauterized as they were encountered. Merino elevator was used to sweep aside adherent subcutaneous tissue for later identification and repair of the fascia. Fascia was then incised in line with the skin incision and the gluteus danielle was split bluntly in line with its fibers. There was abundant fibrotic tissue present and I excised some of this for exposure. After this, a lap was used to push bursal tissue posteriorly to identify the piriformis and quadratus, these were taken down, the piriformis was tagged for later repair. Our self-retaining retractor was in place. At this point, identified the hip capsule incised in a T-type incision, tagging ends for later repair. The hip was dislocated, and I then palpated and marked with electrocautery areas at the greater and lesser trochanters and center of the femoral head and I made measurements for length and offset. I then cady a line on the neck about 1 cm proximal lesser trochanter and made my neck cut through this. The bony remnant was delivered from the operative field. We placed our acetabular retractors and inspected the acetabulum. I excised the soft tissues from the floor the acetabulum as well as the labrum. Osteophytes were taken down posteriorly. After this, we began reaming and reamed down until we encountered a punctate bleeding bony bed. The operative field and then thoroughly irrigated out. The cup was then impacted referencing egegik anatomy and the crossbar attachment. I had identified the transverse acetabular ligament. After this, I palpated for the posterior column and greater sciatic notch and referenced this to place a screw into the posterior column. The operative field was irrigated again and my polyethylene liner was then impacted in position and confirmed that it was fully seated on circumferential visualization. We then removed our acetabular retractors and used our proximal femoral elevator and repositioned the leg. I used the ryne cutting osteotome followed by canal finding reamer followed by lateralizing reamer. We then began broaching and broached to the above size and trialed different head and necks, using our measurements as a guide as well. The above sizes gave the best range of motion and stability. After this, the trial components were removed and the canal was thoroughly irrigated. I then impacted my femoral stem into position. We then re-trialed the head sizes and selected the above size. The hip was redislocated and the Taylor taper region was washed and dried. The femoral head was then gently impacted in position and the acetabulum was inspected and irrigated to make sure was free of debris. After this, the hip was reduced. Excellent range of motion and stability were achieved. I was happy with the leg lengths. We then closed capsule with simple interrupted #2 Ethibond. Piriformis was reapproximated through drill holes. I then injected my periarticular mixture into the ana-incisional soft tissues below. Fascia was closed was running #2 Quill suture. Inverted interrupted 2-0 Vicryl in a multilayered fashion was used for subcutaneous tissue and running 3-0 Monocryl for skin. Prior to wound closure, all counts cor rect 2. No complications. At the conclusion, the hip region was cleansed and dried and our incisional wound vacuum was applied. Patient tolerated surgery well. At the conclusion, he was laid supine and transferred gently supine to the hospital bed and taken to PACU in a stable and extubated condition. Postoperative plan is to admit the patient to the joint center for DVT and antib iotic prophylaxis as well as to begin the rehabilitation and receive likely IV pain medicine. CHAD MANRIQUE II, MD Apr 15, 2019 09:45
[2019-04-15] MEDS: fentaNYL PF VIAL 100 MCG/2 ML VIAL IV PRN ×4 (10:13→10:50)
[2019-04-15] MEDS: MORPHINE SULFATE 2 MG/ML VIAL. IV PRN ×2 (10:40→11:20)
--- NOTE | 2019-04-15 10:40 | RAD ---
Examination: PELVIS History: Postoperative Comparison/Correlation: None Findings: Frontal view of pelvis was obtained. Total right hip arthroplasty is present. No fracture. No findings to suggest loosening. Left hip joint space is adequate. No radiopaque foreign body suggested although overlying artifact on the right may limit assessment. Sacroiliac joints are symmetric. Minimal soft tissue gas involving the right hip region compatible with immediate postoperative status is identified. Impression: Total right hip arthroplasty. No suspicious finding. Electronically signed by: Italo Shearer MD (04/15/2019 10:37 AM) [id number]
[2019-04-15] MEDS: ONDANSETRON PF 4 MG/2 ML VIAL. IV SCH ×2 (12:00→17:54)
[2019-04-15] MEDS: ONDANSETRON ODT 4 MG TAB.RAPDIS. PO SCH ×2 (12:00→17:55)
--- NOTE | 2019-04-15 14:16 | NUR ---
Patient tends to desat while he is asleep. On 2L he was dropping down to 84-86% oxygen saturation. Bumped up to 4L and was sating around 92% while asleep. Once awake his oxygen returns back to 98%. Will monitor and notify retail shift leader about patient desatting while he sleeps. Patient recently diagnosed with sleep apnea but has not gotten a CPAP yet at this time.
[2019-04-15] MEDS ORDERED: WARFARIN 7.5 MG TABLET. PO ONE (16:00)
[2019-04-15] MEDS: FERROUS SULFATE 325 MG TABLET. PO SCH (16:40)
[2019-04-15] MEDS: oxyCODONE IR 5 MG TABLET PO PRN ×2 (16:40→21:07)
[2019-04-15] MEDS ORDERED: VANCOMYCIN 1 GM in IV NORMAL SALINE 250ML 250 ML IV ONE (20:00)
[2019-04-16] MEDS: MORPHINE SULFATE 2 MG/ML VIAL. IV PRN ×2 (00:14→21:03)
[2019-04-16] MEDS: oxyCODONE IR 5 MG TABLET PO PRN ×4 (02:48→18:43)
[2019-04-16 02:53] VITALS: BP 115/54
--- NOTE | 2019-04-16 02:58 | NUR ---
Ambulated to toilet. Having frequency and voiding small amounts at a time. Refused cath. "I'm doing good."
--- NOTE | 2019-04-16 04:47 | NUR ---
Bladder scan shows 609cc, straight cathed for 700cc. Refused SCD to right leg, "it's causing my L5 pain to flare up."
[2019-04-16] MEDS: ONDANSETRON PF 4 MG/2 ML VIAL. IV SCH ×2 (06:00)
[2019-04-16] MEDS: ONDANSETRON ODT 4 MG TAB.RAPDIS. PO SCH ×2 (06:00)
[2019-04-16] MEDS ORDERED: MAGNESIUM HYDROXIDE 2,400 MG/30 ML ORAL.SUSP. PO PRN (06:00)
[2019-04-16 06:44] VITALS: BP 100/58
[2019-04-16] MEDS: ALBUTEROL SULFATE 2.5 MG/3 ML NEBU. NEB SCH ×3 (07:28→20:49)
[2019-04-16] MEDS: BUDESONIDE 0.5 MG/2 ML NEBU. NEB SCH ×2 (07:28→20:48)
[2019-04-16 07:29] LABS: HEMATOCRIT 34.5 % (39.0-53.0); HEMOGLOBIN 11.9 g/dL (13.0-17.5)
[2019-04-16 07:46] LABS: PROTHROMBIN TIME PATIENT 14.3 SEC (11.7-14.0)
[2019-04-16 08:15] VITALS: BP 97/54
[2019-04-16] MEDS: MULTIVITAMIN with MINERAL TABLET. PO SCH (08:16)
[2019-04-16] MEDS: ACETAMINOPHEN 500 MG TABLET PO SCH ×3 (08:16→20:55)
[2019-04-16] MEDS: SENNOSIDES/DOCUSATE 8.6/50MG TABLET. PO SCH (08:16)
[2019-04-16] MEDS: FERROUS SULFATE 325 MG TABLET. PO SCH ×2 (08:16→17:21)
[2019-04-16] MEDS: GABAPENTIN 300 MG CAPSULE. PO SCH ×2 (08:16→20:55)
--- NOTE | 2019-04-16 10:10 | NUR ---
Ambulated to bathroom and voided. Did not use urinal. But stated that it was a lot. Cont. monitor.
--- NOTE | 2019-04-16 10:50 | PDOC ---
ORTHO PROGRESS NOTES Subjective He feels like he is doing well, pain is controlled. Vitals Vital Signs Date Time Temp Pulse Resp B/P (MAP) Pulse Ox O2 Delivery O2 Flow Rate FiO2 04/16/19 10:05 Room Air 04/16/19 08:15 92 97/54 (68) 04/16/19 07:30 95 3.0 04/16/19 06:44 98.6 22 98.6 Labs Laboratory Tests Test 04/15/19 07:20 04/16/19 06:50 Prothrombin Time 12.7 SEC (11.7-14.0) 14.3 SEC (11.7-14.0) Prothromb Time International Ratio 1.0 (0.8-1.1) 1.1 (0.8-1.1) Hemoglobin 11.9 g/dL (13.0-17.5) Hematocrit 34.5 % (39.0-53.0) Mean Corpuscular Hemoglobin Concent 34 g/dL (31-37) Laboratory Tests Test 04/16/19 06:50 Hemoglobin 11.9 g/dL (13.0-17.5) Hematocrit 34.5 % (39.0-53.0) Mean Corpuscular Hemoglobin Concent 34 g/dL (31-37) Prothrombin Time 14.3 SEC (11.7-14.0) Prothromb Time International Ratio 1.1 (0.8-1.1) Notes He is awake and alert and lying in bed. Dressing is intact. Normal motor and sensation are present in his right lower extremity. Assessment and Plan He'll continue PT OT and Coumadin. We will monitor his progress. We will start Flomax, he was straight cathetered yesterday. ARIANNA MANRIQUE II, MD Apr 16, 2019 10:50
--- NOTE | 2019-04-16 11:19 | NUR ---
Pharmacy Warfarin Dosing Note S:Pharmacy consulted to assist with anticoagulation therapy started 04/15/19 with target INR: 1.6 - 2.5 O:JENNIFER MOE is a 73 year old M with ARMAAN LABS: Last INR: 1.1 Last HGB: 11.9 Last HCT: 34.5 Last PLT: -- Last dose of 7.5 mg given on 04/15/19 at 1640 Vitamin K given: N A:INR of 1.1 is below desired range. Target range for this patient is: 1.6 - 2.5 P: Warfarin dose: 5 mg Today at 1600 Bridge Therapy: None Next INR due 04/17/19 Pharmacy anticoagulation service will continue to follow. ZAYRA FORTUNE [facility], 04/16/19 3890
[2019-04-16 11:52] VITALS: BP 110/61
[2019-04-16] MEDS: hydroCHLOROthiazide 12.5 MG CAPSULE PO SCH (11:59)
[2019-04-16] MEDS: amLODIPine BESYLATE 10 MG TABLET PO SCH (11:59)
[2019-04-16] MEDS ORDERED: ONDANSETRON ODT 4 MG TAB.RAPDIS. PO PRN (12:00)
[2019-04-16] MEDS: LISINOPRIL 20 MG TABLET PO SCH (12:00)
[2019-04-16] MEDS ORDERED: ONDANSETRON PF 4 MG/2 ML VIAL. IV PRN (12:00)
[2019-04-16] MEDS: TAMSULOSIN 0.4 MG CAP.ER.24H. PO SCH (14:31)
[2019-04-16 15:00] VITALS: BP 108/63
[2019-04-16] MEDS ORDERED: WARFARIN 5 MG TABLET. PO ONE (16:00)
[2019-04-16] MEDS ORDERED: BISACODYL 10 MG SUPP.RECT. PR PRN (16:00)
[2019-04-16 19:00] VITALS: BP 124/50
--- NOTE | 2019-04-16 21:10 | NUR ---
Morphine given per pt request for pain. c/o "dull and sharp pains in my right hip, back and mcmahon, especially when I walk." Ice pack applied. Assisted into gown. In bed, call light in reach. "I'll be ok as long as I don't move."
[2019-04-17] MEDS: oxyCODONE IR 5 MG TABLET PO PRN ×5 (00:13→21:08)
[2019-04-17] MEDS: ALBUTEROL SULFATE 2.5 MG/3 ML NEBU. NEB SCH ×4 (01:38→19:42)
[2019-04-17] MEDS: ACETAMINOPHEN 500 MG TABLET PO SCH ×4 (03:00→21:08)
[2019-04-17 05:00] VITALS: BP 140/65
[2019-04-17 05:38] LABS: HEMATOCRIT 37.4 % (39.0-53.0); HEMOGLOBIN 12.6 g/dL (13.0-17.5)
--- NOTE | 2019-04-17 05:53 | NUR ---
Using urinal, voiding frequently. Refused bladder scan/cath. "I think I have a UTI." C/o dysuria when asked, no blood seen. UA sent to lab.
[2019-04-17 05:54] LABS: PROTHROMBIN TIME PATIENT 15.2 SEC (11.7-14.0)
[2019-04-17] MEDS: BUDESONIDE 0.5 MG/2 ML NEBU. NEB SCH ×2 (07:14→19:42)
[2019-04-17 07:44] LABS: BILIRUBIN,URINE NEGATIVE (NEG); CLARITY,URINE CLEAR; COLOR,URINE YELLOW; NITRITE,URINE NEGATIVE (NEG); PH,URINE 5.5; PROTEIN,URINE NEGATIVE (NEG-TRACE); UROBILINOGEN,URINE 0.2 mg/dL (0.2 mg/dL)
[2019-04-17] MEDS: SENNOSIDES/DOCUSATE 8.6/50MG TABLET. PO SCH (08:04)
[2019-04-17] MEDS: FERROUS SULFATE 325 MG TABLET. PO SCH ×2 (08:04→15:11)
[2019-04-17] MEDS: MULTIVITAMIN with MINERAL TABLET. PO SCH (08:04)
[2019-04-17] MEDS: LISINOPRIL 20 MG TABLET PO SCH (08:05)
[2019-04-17] MEDS: GABAPENTIN 300 MG CAPSULE. PO SCH ×2 (08:05→21:08)
[2019-04-17] MEDS: hydroCHLOROthiazide 12.5 MG CAPSULE PO SCH (08:05)
[2019-04-17] MEDS: amLODIPine BESYLATE 10 MG TABLET PO SCH (08:05)
--- NOTE | 2019-04-17 08:10 | PDOC ---
ORTHO PROGRESS NOTES Subjective Right hip pain controlled; only problem is dysuria Post-op Day: 2 Procedure RIGHT ARMAAN Vitals Vital Signs Date Time Temp Pulse Resp B/P (MAP) Pulse Ox O2 Delivery O2 Flow Rate FiO2 04/17/19 07:20 Room Air 04/17/19 07:14 98 04/17/19 06:10 20 04/17/19 05:00 98.7 86 140/65 (90) 98.7 04/16/19 07:30 3.0 Labs Laboratory Tests Test 04/16/19 06:50 04/17/19 05:18 Hemoglobin 11.9 g/dL (13.0-17.5) 12.6 g/dL (13.0-17.5) Hematocrit 34.5 % (39.0-53.0) 37.4 % (39.0-53.0) Mean Corpuscular Hemoglobin Concent 34 g/dL (31-37) 34 g/dL (31-37) Prothrombin Time 14.3 SEC (11.7-14.0) 15.2 SEC (11.7-14.0) Prothromb Time International Ratio 1.1 (0.8-1.1) 1.2 (0.8-1.1) Laboratory Tests Test 04/17/19 05:18 Hemoglobin 12.6 g/dL (13.0-17.5) Hematocrit 37.4 % (39.0-53.0) Mean Corpuscular Hemoglobin Concent 34 g/dL (31-37) Prothrombin Time 15.2 SEC (11.7-14.0) Prothromb Time International Ratio 1.2 (0.8-1.1) X-Rays [facility] [address] [place], [place] [id number] IMAGING REPORT Signed PATIENT: JENNIFER MOE ACCOUNT: [id number] : 1945 LOCATION: SURG AGE: 73 SEX: M EXAM STATUS: [facility]. PHYSICIAN: ARIANNA MANRIQUE II, MD REASON: post op PROCEDURE: PELVIS Examination: PELVIS History: Postoperative Comparison/Correlation: None Findings: Frontal view of pelvis was obtained. Total right hip arthroplasty is present. No fracture. No findings to suggest loosening. Left hip joint space is adequate. No radiopaque foreign body suggested although overlying artifact on the right may limit assessment. Sacroiliac joints are symmetric. Minimal soft tissue gas involving the right hip region compatible with immediate postoperative status is identified. Impression: Total right hip arthroplasty. No suspicious finding. Electronically signed by: Italo Lee MD (04/15/2019 10:37 AM) [id number] DICTATED and SIGNED BY: ITALO LEE MD DATE: 04/15/19 1037 Notes Urine has been clear per nurse. Hip pain is controlled and sitting upright eating breakfast. Right hip bandage is saturated, contained within bandage, partially dry. Calf nontender, neg karri's bilaterlally,.A&O x 3 Problems: (1) S/P hip replacement Assessment and Plan Dressing change today. UA to check for UTI, Consult hospitalist as necessary. Plan on discharge tomorrow as possible. Problem Qualifiers (1) S/P hip replacement: Laterality: right Qualified Codes: Z96.641 - Presence of right artificial hip joint FRANCISCO CAM Jr. PAC Apr 17, 2019 8:10 am
[2019-04-17 08:24] LABS: BACTERIA,URINE 0 /HPF (0-FEW); RBC,URINE 0 /HPF (0-2); SQUAMOUS EPITHELIAL CELL,UR FEW /LPF; WBC,URINE 0 /HPF (0-4)
--- NOTE | 2019-04-17 08:51 | DISCH ---
DISCHARGE INSTRUCTIONS Condition on Discharge Condition on Discharge: Stable Activity After Discharge Activity Instructions for Disc: Activity as tolerated Bathing Instructions: Shower-keep dressing dry Weight Bearing Status after Di: As tolerated Diet after Discharge Diet after Discharge: Regular Wound Incision Care Wound/Incision Care: Ice to area for comfort, Keep wound/cast CDI, Do not change dressing Contacting the DRBogdan after DC Call your doctor for: Concerns you may have Follow-Up Follow up with: Sena in 2 wks Warfarin Follow-Up Warfarin Follow UP: per pharmacy ARIANNA MANRIQUE II, MD Apr 17, 2019 08:51
[2019-04-17] MEDS: PHENAZOPYRIDINE 200 MG TABLET. PO SCH ×3 (08:57→21:08)
--- NOTE | 2019-04-17 09:00 | NUR ---
UA results came back negative. Dr Shetty notified and assessed patient. Patient was notified by PA that pyridium helps with dysuria so even though UA was negative, patient still requested to be on it. Dr Shetty ordered it and first dose was given. Dressing to right hip to be changed today due to most of it being covered in dry bloody drainage. RENARD to be replaced today, but per Dr Shetty, if dressing continues to become saturated he wants a Prevena dressing placed tomorrow prior to discharge. Will monitor.
[2019-04-17] MEDS: TAMSULOSIN 0.4 MG CAP.ER.24H. PO SCH ×2 (13:01→21:00)
--- NOTE | 2019-04-17 13:30 | NUR ---
Pharmacy Warfarin Dosing Note S:Pharmacy consulted to assist with anticoagulation therapy started 04/15/19 with target INR: 1.6 - 2.5 O:JENNIFER MOE is a 73 year old M with ARMAAN LABS: Last INR: 1.2 Last HGB: 12.6 Last HCT: 34.5 Last PLT: -- Last dose of 5 mg given on 04/16/19 at 1640 Previous Regimen: Vitamin K given: N Drug Interaction Changes: Ongoing Drug Interactions: A:INR of 1.2 is below desired range. Target range for this patient is: 1.6 - 2.5 P: Warfarin dose: 6 mg Today at 1600 Bridge Therapy: None Next INR due IN AM Pharmacy anticoagulation service will continue to follow. CHRISTINA BAIN [facility], 04/17/19 0480
[2019-04-17] MEDS ORDERED: WARFARIN 3 MG TABLET. PO ONE (16:00)
--- NOTE | 2019-04-17 16:52 | NUR ---
New RENARD dressing placed around 0930 this morning without any complications noted. No signs of dehiscence or infection. Patient still complaining of burning with urination that he states "feels better at times but then randomly gets awfully worse". at bedside. PRN pain medication given upon request for hip pain which patient states is almost unnoticeable at times. Getting around in his room with a walker without any complications or concerns noted. RENARD still intact and working properly. Will continue to monitor.
[2019-04-17 18:00] VITALS: BP 113/61
--- NOTE | 2019-04-17 18:21 | NUR ---
Patient around 1700 start complaining that he was feeling pressure and no longer able to urinate in which he was only able to do "bursts of urine". Bladder scan performed, after a lot of convincing, which showed >687. Dr Galvan called around 1730 and spoken too in which he was updated fully on patients status. He stated to place a gale to allow the bladder to rest and remove/assess tomorrow. Patient and were both notified. Patient agreed to gale insertion even though he wanted to continue straight cath. Infection education and catheter education performed. Gale was then inserted by sterile technique around 1745 and 980ml of yellow/orange urine (on pyridium) removed from bladder. Patient stated immediate relief of burning and pressure sensations. Stat lock placed on left thigh to hold catheter in place. Catheter working properly with no concerns noted. Will continue to monitor.
--- NOTE | 2019-04-17 20:06 | PATHOLOGY ---
[facility] Accession Number: [id number] . 01 Material submitted: . femur - FEMORAL HEAD, RIGHT. Modifiers: head, right . 01 Clinical history: . Primary osteoarthritis right hip . 02 Diagnosis: Femoral head, right total hip arthroplasty: - Advanced degenerative arthritis with focal subarticular cystic degeneration. . (JPM:mml; 04/17/2019) QLM 04/17/2019 1546 Local . 02 Electronically signed: . Arian Mejía MD, Pathologist NPI- [id number] . 01 Gross description: . The specimen is received in formalin, labeled "Mark Fermin, Rt femoral head" and consists of a femoral head with attached neck measuring 6.0 x 5.3 x 5.0 cm. The articular surface shows roughening and eburnation over approximately 60% of the surface. Osteophytes are present. Sectioning reveals yellow-maria cut surfaces with a 0.6 cm cyst. Station Helper sections are submitted in A1 following decalcification. (SDY; 04/15/2019) SYU/SYU 04/17/2019 1544 Local . 02 Pathologist provided ICD-10: M16.11 . 02 CPT . 600200, 452465 Specimen Comment: A courtesy copy of this report has been sent to [phone] Specimen Comment: [id number] Specimen Comment: Report sent to / DR CHAVIRA Performed at: 01 [facility] [address] [facility] [address], [place] [id number] MD Mina Alvarado MD Phone: [phone] Performed at: 02 [facility] [address] [place], [place] [id number] MD Arian Mejía MD Phone: [phone]
--- NOTE | 2019-04-17 21:15 | NUR ---
Flomax given at 1300 today. HS dose held. Coronel draining clear orange urine.
[2019-04-18] MEDS: ALBUTEROL SULFATE 2.5 MG/3 ML NEBU. NEB SCH ×3 (00:04→12:12)
[2019-04-18] MEDS: oxyCODONE IR 5 MG TABLET PO PRN ×4 (01:54→16:49)
[2019-04-18] MEDS: ACETAMINOPHEN 500 MG TABLET PO SCH ×3 (03:00→14:48)
--- NOTE | 2019-04-18 04:51 | NUR ---
Patient has slept well. Coronel in place, draining large amounts. Pain well managed w/ Roxicodone.
[2019-04-18 05:31] VITALS: BP 143/67
[2019-04-18 05:44] LABS: HEMATOCRIT 32.2 % (39.0-53.0)
[2019-04-18 05:45] LABS: PROTHROMBIN TIME PATIENT 18.5 SEC (11.7-14.0)
[2019-04-18] MEDS: BUDESONIDE 0.5 MG/2 ML NEBU. NEB SCH (07:00)
[2019-04-18] MEDS: MULTIVITAMIN with MINERAL TABLET. PO SCH (08:26)
[2019-04-18] MEDS: PHENAZOPYRIDINE 200 MG TABLET. PO SCH ×3 (08:27→16:49)
[2019-04-18] MEDS: SENNOSIDES/DOCUSATE 8.6/50MG TABLET. PO SCH (08:27)
[2019-04-18] MEDS: FERROUS SULFATE 325 MG TABLET. PO SCH (08:28)
[2019-04-18] MEDS: GABAPENTIN 300 MG CAPSULE. PO SCH (08:32)
--- NOTE | 2019-04-18 08:38 | PDOC ---
ORTHO PROGRESS NOTES Subjective Mark is feeling a little bit more hip pain today. He had difficulty voiding and had a large residual and therefore a Coronel catheter was placed last night. Vitals Vital Signs Date Time Temp Pulse Resp B/P (MAP) Pulse Ox O2 Delivery O2 Flow Rate FiO2 04/18/19 08:28 Room Air 04/18/19 07:01 95 04/18/19 05:31 98.4 82 20 143/67 (92) 98.4 Labs Laboratory Tests Test 04/17/19 05:18 04/17/19 05:30 04/18/19 04:20 Hemoglobin 12.6 g/dL (13.0-17.5) 11.0 g/dL (13.0-17.5) Hematocrit 37.4 % (39.0-53.0) 32.2 % (39.0-53.0) Mean Corpuscular Hemoglobin Concent 34 g/dL (31-37) 34 g/dL (31-37) Prothrombin Time 15.2 SEC (11.7-14.0) 18.5 SEC (11.7-14.0) Prothromb Time International Ratio 1.2 (0.8-1.1) 1.6 (0.8-1.1) Urine Collection Type Unknown Urine Color Yellow Urine Clarity Clear Urine pH 5.5 Urine Specific Prince 1.010 Urine Protein Negative mg/dL (NEG-TRACE) Urine Glucose (UA) Negative mg/dL (NEG) Urine Ketones (Stick) Negative mg/dL (NEG) Urine Blood Negative (NEG) Urine Nitrite Negative (NEG) Urine Bilirubin Negative (NEG) Urine Urobilinogen Dipstick 0.2 mg/dL (0.2 mg/dL) Urine Leukocyte Esterase Negative (NEG) Urine RBC 0 /HPF (0-2) Urine WBC 0 /HPF (0-4) Urine Squamous Epithelial Cells Few /LPF Urine Bacteria 0 /HPF (0-FEW) Urine Mucus Slight /LPF Laboratory Tests Test 04/18/19 04:20 Hemoglobin 11.0 g/dL (13.0-17.5) Hematocrit 32.2 % (39.0-53.0) Mean Corpuscular Hemoglobin Concent 34 g/dL (31-37) Prothrombin Time 18.5 SEC (11.7-14.0) Prothromb Time International Ratio 1.6 (0.8-1.1) Notes He is awake and alert and sitting in bed. Minimal drainage is present at his dressing. Normal motor and sensation are present in his right lower extremity Assessment and Plan I discussed with he and his that the next step is a voiding trial after Coronel catheter has been removed. He may require placement of a catheter after that with outpatient urology care. We will see how his voiding trial goes. Either way, I think it still appropriate for discharge later today. ARIANNA MANRIQUE II, MD Apr 18, 2019 08:38
[2019-04-18] MEDS: LISINOPRIL 20 MG TABLET PO SCH (09:00)
[2019-04-18] MEDS: amLODIPine BESYLATE 10 MG TABLET PO SCH (09:00)
[2019-04-18] MEDS: hydroCHLOROthiazide 12.5 MG CAPSULE PO SCH (09:00)
[2019-04-18] MEDS ORDERED: MAGNESIUM HYDROXIDE 2,400 MG/30 ML ORAL.SUSP. PO PRN (09:30)
[2019-04-18 11:00] VITALS: BP 130/54
--- NOTE | 2019-04-18 11:26 | NUR ---
Pharmacy Warfarin Dosing Note S:Pharmacy consulted to assist with anticoagulation therapy started 04/15/19 with target INR: 1.6 - 2.5 O:JENNIEFR MOE is a 73 year old M with ARMAAN LABS: Last INR: 1.6 Last HGB: 12.6 Last HCT: 34.5 Last PLT: -- Last dose of 6 mg given on 04/16/19 at 1640 Previous Regimen: Vitamin K given: N Drug Interaction Changes: Ongoing Drug Interactions: A:INR of 1.6 is within desired range. Target range for this patient is: 1.6 - 2.5 P: Warfarin dose: 5 mg Prior to Discharge Bridge Therapy: None Next INR due MONDAY DURING PHYSICAL THERAPY Pharmacy anticoagulation service will continue to follow. [facility], 04/18/19 1126
[2019-04-18] MEDS ORDERED: WARFARIN 5 MG TABLET. PO ONE (12:00)
--- NOTE | 2019-04-18 12:00 | NUR ---
Pt stated doesn't have urge to void. Had pt try and only dribble few drops. P.O fluids encouraged. Pt drink, doesn't want catheter to be replaced. Cont. monitor.
[2019-04-18] MEDS ORDERED: POLYETHYLENE GLYCOL 3350 17 GM PACKET. PO SCH (13:00)
--- NOTE | 2019-04-18 13:04 | NUR ---
Still no urge, attempted void unsuccessfully. Bladder scan 315cc. Will encourage po fluids and attempt to void again in couple of hours.
[2019-04-18] MEDS ORDERED: WARFARIN 3 MG TABLET. PO ONE (14:00)
[2019-04-18 15:14] VITALS: BP 138/63
--- NOTE | 2019-04-18 15:15 | NUR ---
Still unable to void. Bladder scan showed >458cc. 16 FR Coronel inserted by sterile technique got over 400cc yellow/orange urine. Pt tolerated it well. Discussed how to maintain and care of Coronel catheter. Both pt and spouse verbalized understanding.
--- NOTE | 2019-04-18 16:00 | NUR ---
Pt being discharged home today with gale catheter. Will follow up with primary.
[2019-04-18] MEDS: TAMSULOSIN 0.4 MG CAP.ER.24H. PO SCH (16:49)
--- NOTE | 2019-04-18 17:00 | NUR ---
Discharge instructions and prescription given to pt and spouse. Both verbalized understanding. Pt discharged home accompanied spouse.
--- NOTE | 2019-04-19 08:49 | PDOC3 ---
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 Brief Hospital Course Allergies Allergies Coded Allergies Type Severity Reaction Last Updated Verified Penicillins Allergy Severe urticaria, angioedema 06/19/15 Yes Sulfa (Sulfonamide Antibiotics) Allergy Severe urticaria, angioedema 03/21/17 Yes adhesive tape Allergy Intermediate 04/04/19 Yes zolpidem Allergy Intermediate 04/15/19 Yes Vital Signs Vital Signs Date Time Temp Pulse Resp B/P (MAP) Pulse Ox O2 Delivery O2 Flow Rate FiO2 04/18/19 16:49 Room Air 04/18/19 15:14 98.2 82 18 138/63 (88) 95 98.2 Lab Results Laboratory Tests Test 04/18/19 04:20 Hemoglobin 11.0 g/dL (13.0-17.5) Hematocrit 32.2 % (39.0-53.0) Mean Corpuscular Hemoglobin Concent 34 g/dL (31-37) Prothrombin Time 18.5 SEC (11.7-14.0) Prothromb Time International Ratio 1.6 (0.8-1.1) Brief Hospital Course Mr. Fermin is a 73 old male who presented to my outpatient orthopedic surgery clinic with complaints of severe and progressive pain that failed conservative therapies including injections. We had a discussion of the risks, benefits, alternatives to total hip arthroplasty and he elected to proceed. He tolerated surgery well cover well from anesthesia in the PACU. He was then taken to the joint Center for care and observation. He did receive PT, OT, DVT and antibiotic prophylaxis. He recovered well from surgery and remained hemodynamically stable and afebrile throughout the hospitalization. Pain was controlled on oral pain medicine at the time of discharge. Good progress was made with therapy throughout the hospitalization, and activities of daily living were accomplished by the patient. The incision was clean dry and intact and the operative extremity had normal motor and sensation. His hospital course was significant for postoperative urinary retention refractory to Flomax. A Coronel catheter was placed and subsequently removed to allow a voiding trial which demonstrated a large bladder residual and therefore the patient was discharged with a Coronel catheter. Discharge Information Condition at Discharge: Stable Follow Up: Weeks Disposition/Orders: D/C to Home Scheduled Amlodipine Besylate (Amlodipine Besylate) 10 Mg Tablet, 10 MG PO DAILY, (Reported) Entered as Reported by: YEYO PALAFOX on 06/19/151138 Last Taken: Unknown Dose on 04/15/19544 Last Action: Last Taken Edited on 04/15/19735 by FATOU CONNORS Gabapentin (Gabapentin ) 300 Mg Capsule, 300 MG PO BID for NEUROGENIC PAIN, (Reported) Entered as Reported by: LOREN VELOZ on 11/19/18 1237 Last Taken: Unknown Dose on 04/15/19544 Last Action: Last Taken Edited on 04/15/19735 by FATOU CONNORS Hydrochlorothiazide (Hydrochlorothiazide Tablet) 50 Mg Tablet, 12.5 MG PO DAILY for DIURETIC, Ref 0 (Reported) Entered as Reported by: YEYO PALAFOX on 06/19/151138 Last Action: Converted on 04/15/19707 by KOLBY MANRIQUE MD Meloxicam (Meloxicam) 15 Mg Tablet, 15 MG PO DAILY for PAIN, (Reported) Entered as Reported by: FATOU CONNORS on 04/15/19736 Last Taken: Unknown Dose on 04/14/192099 Last Action: Last Taken Edited on 04/15/19737 by FATOU CONNORS Mometasone/Formoterol (Dulera 100 Mcg/5 Mcg Inhaler) 13 Gm Hfa.aer.ad, 2 PUFF IH BID for CONTROL COPD, #13 Ref 5 (Reported) Entered as Reported by: JOEL ROTHMAN on 04/04/19846 Last Action: Converted on 04/15/19707 by KOLBY MANRIQUE MD Multivitamin (Multiple Vitamins) 1 Each Tablet, 1 EACH PO DAILY for SUPPLEMENT, (Reported) Entered as Reported by: JOEL ROTHMAN on 04/04/19846 Last Action: HELD on 04/15/19707 by KOLBY MANRIQUE MD [place]-3 Fatty Acids/Fish Oil ([place] 3 Fish Oil Softgel) 1 Each Capsule.dr, 1 EACH PO DAILY for SUPPLEMENT, (Reported) Entered as Reported by: YEYO PALAFOX on 06/19/151138 Last Taken: Unknown Dose on 04/10/19 Last Action: Last Taken Edited on 04/15/19736 by FATOU CONNORS Ubidecarenone (Coq-10) 30 Mg Capsule, 30 MG PO DAILY for supplement, (Reported) Entered as Reported by: KERA WALTERS on 05/15/18 1215 Last Action: HELD on 04/15/19707 by KOLBY MANRIQUE MD Warfarin Sodium (Coumadin) 5 Mg Tablet, 5 MG PO DAILY for PRE SURGERY, #30 (Reported) Entered as Reported by: FATOU CONNORS on 04/15/19 0738 Last Taken: Unknown Dose on 04/14/19 2100 Last Action: Last Taken Edited on 04/15/19746 by FATOU CONNORS Scheduled PRN Albuterol Sulfate (Ventolin Hfa Inhaler) 18 Gm Hfa.aer.ad, 2 PUFF INH PRN Q4- 6HRS PRN for WHEEZING, Ref 0 (Reported) Entered as Reported by: JOEL ROTHMAN on 04/04/19 0847 Last Action: Converted on 04/15/19707 by KOLBY MANRIQUE MD Aspirin (Aspirin) 81 Mg Tab.chew, 81 MG PO for daily, (Reported) Entered as Reported by: YEYO PALAFOX on 06/19/15 113 Last Taken: Unknown Dose on 04/08/19 Last Action: Last Taken Edited on 736 by FATOU CONNORS Sildenafil Citrate (Sildenafil) 20 Mg Tablet, 20 MG PO PRN TID PRN for URINE I NCONTINENCE R/T PROSTAT, (Reported) Entered as Reported by: KERA WALTERS on 05/15/18 1211 Last Action: Continued on 04/15/19707 by KOLBY MANRIQUE MD Miscellaneous Medications Lisinopril (Lisinopril) 40 Mg Tablet, 40 MG PO for FOR HYPERTENSION, #30 Ref 0 (Reported) Entered as Reported by: YEYO PALAFOX on 06/19/151138 Last Action: Continued on 04/15/19707 by KOLBY MANRIQUE MD Patient Instructions Patient Instructions He will be discharged home. We will get him started on outpatient therapy as soon as we are able. The patient will be on Coumadin for a month. He can weight-bear as tolerated. Worrisome signs and symptoms that should prompt a phone call to my office were discussed. He will follow up with his primary care provider regarding the Coronel catheter and urology referral. We'll see him back in 2 weeks, sooner should a problem arise. ARIANNA MANRIQUE II, MD Apr 19, 2019 08:48
== END 2019-04-18 17:00 | disposition home or self-care (01) | DRG 470 ==
LOC: SURG 06:13 → EDSTATUS 07:30 → 4 SOUTHEST 12:11
PROVIDERS: ADMIT Orthopaedic Surgery Sports Medicine; ATTEND Orthopaedic Surgery Sports Medicine
PROC: 0SR902Z Replacement of Right Hip Joint with Metal on Polyethylene Synthetic Substitute, Open Approach (ICD-10-PCS; principal; 2019-04-15 07:30)
DX: M16.11 Unilateral primary osteoarthritis, right hip (principal); R33.9 Retention of urine, unspecified; I10 Essential (primary) hypertension; I25.10 Atherosclerotic heart disease of native coronary artery without angina pectoris; E78.5 Hyperlipidemia, unspecified; G62.9 Polyneuropathy, unspecified; Z88.0 Allergy status to penicillin; Z88.2 Allergy status to sulfonamides; Z88.8 Allergy status to other drugs, medicaments and biological substances; Z91.09 Other allergy status, other than to drugs and biological substances; Z95.1 Presence of aortocoronary bypass graft
CPT/HCPCS: 36415; 72170; 81001; 85014; 85018; 85610; 86850; 86900; 86901; 88304; 88311; 94640; 94760; A7015; C1713; J0171; J1100; J1885; J2001; J2270; J2370; J2704; J2710; J2795; J3010; J3370; J3490; J7030; J7050; J7613; J7626; 97110; 97116; 97150; 97530; 97535; G0378

== ENCOUNTER → 2019-04-24 | Outpatient (CLI) | payer OTHER ==
[2019-04-16 15:00] VITALS: BP 108/63
[~2019-04-24] MED LIST changes: -ACETAMINOPHEN 500 MG TABLET PO PRN; +MELO15TA23 PO; -TRANEXAMIC ACID 1,000 MG in IV NS 50ML -- 1ST BAG INJ ONE; +WARF-78 PO
[2019-04-24 11:50] LABS: PROTHROMBIN TIME PATIENT 16.3 SEC (11.7-14.0)
== END | disposition home or self-care (01) ==
LOC: LAB 11:16
PROVIDERS: ATTEND Orthopaedic Surgery Sports Medicine
DX: Z79.01 Long term (current) use of anticoagulants (principal)
CPT/HCPCS: 36415; 85610

== ENCOUNTER → 2019-06-03 | Outpatient (CLI) | payer OTHER ==
[~2019-06-03] MED LIST changes: +IOHEXOL 180 MG/ML 10 ML VIAL. ONE; +TAMS0.4C97 PO; +TRAZ-118 PO; +methylPREDNISolone ACETATE 40 MG/ML VIAL. ONE; +methylPREDNISolone ACETATE 80 MG/ML VIAL. ONE
[2019-06-03 11:03] LABS: PROTHROMBIN TIME PATIENT 12.8 SEC (11.7-14.0)
--- NOTE | 2019-06-03 12:34 | PAIN ---
DATE OF SERVICE: 06/03/2019 PROGRESS NOTE FOR PAIN CLINIC DIAGNOSES: Lumbar radiculopathy with lumbar degenerative disk disease. HISTORY OF PRESENT ILLNESS: The patient is a 74-year-old male who returns for followup status post lumbar caudal approach epidural steroid injections in the past. The patient reports he has done quite well with these. He was recently on Coumadin for hip replacement and has been off this now. We did check an INR today with 1.0 result, PT of 12.8. The patient reports still significant pain in the right lower extremity from the knee and the mcmahon down the lateral aspect and some in the posterior thigh as well, mostly in the lower leg. The patient reports it is an 8 on a scale of 10 at its worst over the past week, 4 on average, 1 at its least and is a 4 today. The patient reports it is aching, becoming unbearable with walking, standing, better with sitting or lying down, generally wakes him from sleep at least once a night. The patient reports no new motor or sensory deficits, no new bowel or bladder incontinence or other complaints. PHYSICAL EXAMINATION: VITAL SIGNS: The patient's blood pressure 141/79, pulse 74, respirations 16, temperature 98.8 degrees Fahrenheit, height is 5 feet 8 inches, weight is 236 pounds. GENERAL: The patient is awake, alert, oriented, appropriate, very pleasant demeanor. HEENT: Head shows normocephalic, atraumatic. Extraocular movements are intact and symmetrical. Oral cavity: Mucous membranes moist and pink. Dentition is intact. NECK: Shows anterior throat supple without palpable lymphadenopathy noted. Swallow reflex symmetrical. CHEST: Shows normal on inspection. Breath sounds clear to auscultation bilaterally. HEART: Shows S1, S2 clear. ABDOMEN: Obese, soft, nontender, nondistended. BACK: Shows spine grossly in the midline. Normal appearing thoracic kyphosis and minor flattening of lumbar lordotic curvature. Lumbar paraspinous muscle shows symmetrical on inspection, with palpation shows some mild tenderness diffusely bilaterally, but only diffusely without significant radiation. EXTREMITIES: The patient's lower extremities show deep tendon reflexes at 1+ in the patellar and tendo calcaneus tendons are equal. Motor exam is approximately 4 on a scale of 5 on the right with dorsiflexion and extension, 5/5 on the left. Peripheral pulses are 1+. No peripheral edema is noted bilaterally. Options were discussed with the patient. The patient's old chart was reviewed. His current medication regimen is updated. Current review of systems is updated today as well. We will proceed with a caudal approach epidural steroid injection today with fluoroscopic guidance. Risks were again discussed including, but not limited to bleeding, infection, possibility of epidural hematoma, subsequent neurological compromise, dural puncture, headaches, spinal cord and/or nerve damage, side effects of steroid medication and poor results regarding pain control. The patient understands and wished to proceed. The patient will return to clinic in approximately 2 weeks for followup. He was counseled on return appointment, activity level and side effects to be aware of. DIAGNOSIS: Lumbar radiculopathy with lumbar degenerative disk disease. PROCEDURE: Lumbar epidural steroid injection and caudal approach. MEDICATION INJECTED: A total of 120 mg Depo-Medrol plus 10 mL of preservative-free normal saline and 2 mL of contrast. CONDITION AT DISCHARGE: Stable. The patient tolerated the procedure well, had no complications. OLINDA MICHAELS MD DR: LATRELL/chelo JOB#: [id number] / [id number]
== END ==
LOC: PNCL 10:17
PROVIDERS: ATTEND Anesthesiology
DX: M51.16 Intervertebral disc disorders with radiculopathy, lumbar region (principal); Z79.01 Long term (current) use of anticoagulants
CPT/HCPCS: 36415; 62323; 85610; J1030; J1040; Q9965

== ENCOUNTER → 2019-08-19 | Outpatient (CLI) | payer OTHER ==
[2015-06-19 12:50] VITALS: BP_SYST 108
[2019-04-16 15:00] VITALS: BP_DIAS 63
[~2019-08-19] MED LIST changes: -IOHEXOL 180 MG/ML 10 ML VIAL. ONE; -SILD20TA2 PO; +SILD20TA4 PO; -WARF-78 PO; +WARF5TAB2 PO; -methylPREDNISolone ACETATE 40 MG/ML VIAL. ONE; -methylPREDNISolone ACETATE 80 MG/ML VIAL. ONE
--- NOTE | 2019-08-19 12:25 | KCIC ---
CT CHEST WO CONTRAST Indication: Lung nodule Technique: Noncontrast CT imaging was performed of the chest, multiplanar reconstruction images submitted. One or more of the following individualized dose reduction techniques were utilized for this examination: 1. Automated exposure control 2. Adjustment of the mA and/or kV according to patient size 3. Use of iterative reconstruction technique. Comparison: August 20, 2018 Findings: There is some motion degradation. There again has been a median sternotomy. There is some nonspecific heterogeneity of the thyroid gland bilaterally as seen previously, possible underlying nodules. No new significant chest lymphadenopathy is identified. There is coronary calcification. Thoracic aortic caliber is within normal limits, scattered plaque present. There is also some plaque of the visualized abdominal aorta and branches. There are splenic granulomas. There is no pericardial or pleural fluid, infiltrate, or pneumothorax. 6 to 7 mm noncalcified posterior right upper lobe nodule image 41 series 7 is stable. Tiny about 2 mm superior right lower lobe nodule image 47 is unchanged. No new suspicious pulmonary nodularity is identified. There is multilevel thoracolumbar degenerative disc disease. IMPRESSION: 1. Previously seen pulmonary nodules are unchanged dating back to January 2018 exam, largest posteriorly of the right upper lobe 6 to 7 mm. There is no new suspicious pulmonary nodularity. 2. There is coronary calcification. There has been median sternotomy. 3. There may be bilateral thyroid nodularity, grossly unchanged. Electronically signed by: Sampson Barron MD (08/19/2019 12:22 PM) [id number]
== END | disposition home or self-care (01) ==
LOC: KCIC CT 11:55
PROVIDERS: ATTEND Internal Medicine Pulmonary Disease
DX: R91.8 Other nonspecific abnormal finding of lung field (principal); I25.10 Atherosclerotic heart disease of native coronary artery without angina pectoris; M51.34 Other intervertebral disc degeneration, thoracic region
CPT/HCPCS: 71250

== ENCOUNTER → 2020-02-06 | Outpatient (CLI) | payer OTHER ==
[~2020-02-06] MED LIST changes: +AMLO-187 PO; -AMLO10TA8 PO
--- NOTE | 2020-02-07 10:27 | RAD ---
MR#: [id number] Date of Study: 02/06/2020 Ordering Physician: NICHO VIZCAINO, Referring Physician: NICHO VIZCAINO, Tech: Nanci Alejandro, BURKE, RVT, RTR APPROVED REPORT Patient Location: OUT-PATIENT Laterality:Bilateral Indications Bruit Doppler Spectral Velocity Analysis Right Left pCCA 113/19 cm/spCCA 95/19 cm/s mCCA 98/17 cm/smCCA 91/18 cm/s dCCA 74/16 cm/sdCCA 71/15 cm/s Bulb 75/17 cm/sBulb 93/19 cm/s ECA 159/17 cm/sECA 120/11 cm/s pICA 104/23 cm/spICA 87/20 cm/s Surjit 119/20 cm/smICA 86/25 cm/s dICA 52/9 cm/sdICA 110/32 cm/s Vert. 38/12 cm/sVert. 48/10 cm/s ICA/CCA 1.21ICA/CCA 1.20 Findings Grayscale images of the bilateral common carotid, external and internal carotid vessels demonstrate m ild to moderate diffuse plaque mostly localized to the carotid bulbs. Spectral waveforms and color Doppler are overall suggestive of 0 to less than 50% stenosis based on v elocity criteria in the bilateral internal carotid vessels. Normal ICA to CCA ratios bilaterally. Normal vertebral antegrade velocities noted. Critical Notification Critical Value: No <Conclusion> 1. No significant internal carotid arterial disease bilaterally. Signed by : Reece Deng, Electronically Approved : 02/06/2020 12:36:50
--- NOTE | 2020-02-07 10:27 | CARD ---
MR#: [id number] Date of Study: 02/06/2020 Ordering Physician: NICHO VIZCAINO, Referring Physician: NICHO VIZCAINO, Tech: Nanci Nieves APPROVED REPORT EXAM: Two-dimensional and M-mode echocardiogram with Doppler and color Doppler. Other Information Quality : FairHR: 65bpm Technically limited study due to body habitus. INDICATION Cardiac Disease: CAD Surgery/Intervention CABG: Date: 2008 Site: [facility] RISK FACTORS Hypertension 2D DIMENSIONS RVDd3.3 (2.9-3.5cm)Left Atrium(2D)4.2 (1.6-4.0cm) IVSd1.0 (0.7-1.1cm)Aortic Root(2D)3.6 (2.0-3.7cm) LVDd5.3 (3.9-5.9cm)LVOT Diameter2.1 (1.8-2.4cm) PWd1.0 (0.7-1.1cm)LVDs2.9 (2.5-4.0cm) FS (%) 46.1 %SV104.2 ml LVEF(%)77.0 (>50%) Aortic Valve AoV Peak Wilmer.152.2cm/sAoV VTI37.6cm AO Peak GR.9.3mmHgLVOT Peak Wilmer.104.1cm/s LVOT VTI 24.55cmAO Mean GR.5mmHg ROBERTO (VMAX)1.61sy1WHJ (VTI)2.24cm2 Mitral Valve MV E Ufjajtpa17.9cm/sMV DECEL LJJY500ol MV A Pihavpez31.7cm/sMV BLI14ue E/A Ratio1.0MVA (PHT)3.49cm2 TDI E/Lateral E'9.4E/Medial E'11.9 Pulmonary Valve PV Peak Whbrjuse99.1cm/sPV Peak Grad.4mmHg Tricuspid Valve TR P. Xgneirxs473qw/sRAP [id number] TR Peak Gr.16ghMfERUI65cuFe Pulmonary Vein S1 Hirqymbr39.8cm/sD2 Uxfskoct56.6cm/s PVa [id number] LEFT VENTRICLE The left ventricle is normal size. There is mild concentric left ventricular hypertrophy. The left ve ntricular systolic function is normal and the ejection fraction is within normal range. The Ejection Fraction is 55-60%. There is normal LV segmental wall motion. Transmitral Doppler flow pattern is Gra de II-pseudonormal filling dynamics. RIGHT VENTRICLE The right ventricle is normal size. There is normal right ventricular wall thickness. The right ventr icular systolic function is normal. ATRIA The left atrium is borderline dilated. The right atrium is borderline dilated. The interatrial septum is intact with no evidence for an atrial septal defect or patent foramen ovale as noted on 2-D or Do ppler imaging. AORTIC VALVE The aortic valve is calcified but opens well. Doppler and Color Flow revealed trace aortic regurgitat ion. There is no significant aortic valvular stenosis. Calculated aortic valve area is 2.04 cm2 with maximum pressure gradient of 10 mmHg and mean pressure gradient of 6 mmHg. MITRAL VALVE The mitral valve is normal in structure and function. There is no evidence of mitral valve prolapse. There is no mitral valve stenosis. Doppler and Color Flow revealed no mitral valve regurgitation note d. TRICUSPID VALVE The tricuspid valve is normal in structure and function. Doppler and Color Flow revealed trace tricus pid regurgitation with an estimated PAP of 22 mmHg. There is no tricuspid valve stenosis. PULMONIC VALVE The pulmonic valve is not well visualized. Doppler and Color Flow revealed no pulmonic valvular regur gitation. There is no pulmonic valvular stenosis. GREAT VESSELS The aortic root is normal in size. The IVC was not well visualized. PERICARDIAL EFFUSION There is no evidence of significant pericardial effusion. Critical Notification Critical Value: No <Conclusion> The left ventricular systolic function is normal and the ejection fraction is within normal range. Th e Ejection Fraction is 55-60%. There is normal LV segmental wall motion. Signed by : Reece Deng, Electronically Approved : 02/06/2020 12:20:29
== END ==
LOC: ECHO 07:50
PROVIDERS: ATTEND Internal Medicine Cardiovascular Disease
DX: I65.23 Occlusion and stenosis of bilateral carotid arteries (principal); I25.810 Atherosclerosis of coronary artery bypass graft(s) without angina pectoris; I51.7 Cardiomegaly
CPT/HCPCS: 36415; 80061; 93306; 93880

== ENCOUNTER → 2020-09-21 | Outpatient (CLI) | payer OTHER ==
[~2020-09-21] MED LIST changes: -HYDR50TA6 PO; +HYDR50TA9 PO
--- NOTE | 2020-09-21 14:00 | KCIC ---
EXAMINATION: CT Chest that IV contrast INDICATION: Reason: LUNG NODULE / Spl. Instructions: PRIOR CT CHEST 08/19/19 / History: COMPARISON: CT chest 08/19/2019 dating back to 01/29/2018 TECHNIQUE: Spiral CT was obtained from the jugular notch through the posterior costophrenic recess wi thout IV contrast. 3-D MIPS, sagittal and coronal reformats were obtained. Exposure: One or more of the following individualized dose reduction techniques were utilized for thi s examination: 1. Automated exposure control 2. Adjustment of the mA and/or kV according to patient size 3. Use of iterative reconstruction technique. FINDINGS: Heart size is normal. Similar post-CABG changes with intact median sternotomy wires. No pathologicall y enlarged mediastinal or hilar adenopathy. Similar calcified subcarinal nodes. Stable 8 mm nodule wi thin the posterior right upper lobe continues (), this is unchanged in size and appearance him ba ck to 01/29/2018. No new nodules. Stable 11 mm pleural-based nodular thickening within the anterior m edial right upper lobe, favoring pleural parenchymal scarring. No pneumothorax or pleural effusion. T here are no suspicious osseous lesions. Multilevel degenerative changes are redemonstrated. No evidence of acute process in the visualized upper abdomen. IMPRESSION: 1. Previously noted subcentimeter pulmonary nodules are unchanged dating back to 01/29/2018. 2. No new suspicious pulmonary nodules. Electronically signed by: Jesus Chand DO (09/21/2020 1:58 PM) [id number]
== END ==
LOC: KCIC CT 10:50
PROVIDERS: ATTEND Internal Medicine Pulmonary Disease
DX: R91.8 Other nonspecific abnormal finding of lung field (principal)
CPT/HCPCS: 71250